=== PATIENT | female | born 1950 | race Caucasian/White ===

== ENCOUNTER → 2016-05-04 | Outpatient (CLI) | payer OTHER ==
[2016-05-04 13:38] LABS: MEAN CORPUSCULAR HEMOGLOBIN 33.7 pg (27.0-33.0); MEAN CORPUSCULAR VOLUME 99.2 fl (80.0-96.0); RED CELL DISTRIBUTION WIDTH 13.8 % (11.5-14.5); WHITE BLOOD COUNT 7.5 K/mm3 (4.0-10.0)
[2016-05-04 13:49] LABS: ALBUMIN/GLOBULIN RATIO 1.33 (1.00-1.93); ALKALINE PHOSPHATASE 160 U/L (45-117); ALT/SGPT 29 U/L (12-78); ANION GAP 6 MEQ/L (8-16); AST/SGOT 26 U/L (15-37); BILIRUBIN,TOTAL 0.3 MG/DL (0.2-1.0); BLOOD UREA NITROGEN 15 MG/DL (7-18); CALCIUM LEVEL 9.6 MG/DL (8.8-10.2); CARBON DIOXIDE LEVEL 30 MEQ/L (21-32); CHLORIDE LEVEL 109 MEQ/L (98-107); CHOLESTEROL LEVEL 285 MG/DL (<200); CREATININE FOR GFR 0.68 MG/DL (0.55-1.02); GLOMERULAR FILTRATION RATE > 60.0 (>45); GLUCOSE, FASTING 97 MG/DL (80-110); POTASSIUM SERUM 4.6 MEQ/L (3.5-5.1); SODIUM LEVEL 145 MEQ/L (136-145); TRIGLYCERIDES LEVEL 183 MG/DL (<150)
== END | disposition home or self-care (01) ==
LOC: M WUC 10:21
PROVIDERS: ATTEND Nurse Practitioner Adult Health
DX: E83.119 Hemochromatosis, unspecified (principal); I10 Essential (primary) hypertension; E78.00 Pure hypercholesterolemia, unspecified; E03.9 Hypothyroidism, unspecified

== ENCOUNTER → 2017-01-29 | Outpatient (CLI) | payer MEDICARE, OTHER ==
[2017-01-29 13:54] LABS: MEAN CORPUSCULAR HGB CONC 33.2 g/dl (32.0-36.5); MEAN CORPUSCULAR VOLUME 96.5 fl (80.0-96.0); RED CELL DISTRIBUTION WIDTH 13.5 % (11.5-14.5); WHITE BLOOD COUNT 7.1 10^3/uL (4.0-10.0)
[2017-01-29 14:06] LABS: ALBUMIN 3.6 GM/DL (3.2-5.2); ALBUMIN/GLOBULIN RATIO 1.13 (1.00-1.93); ALKALINE PHOSPHATASE 147 U/L (45-117); ALT/SGPT 23 U/L (12-78); ANION GAP 8 MEQ/L (8-16); AST/SGOT 15 U/L (15-37); BILIRUBIN,TOTAL 0.3 MG/DL (0.2-1.0); BLOOD UREA NITROGEN 17 MG/DL (7-18); CARBON DIOXIDE LEVEL 27 MEQ/L (21-32); CHLORIDE LEVEL 107 MEQ/L (98-107); CHOLESTEROL LEVEL 284 MG/DL (<200); CREATININE FOR GFR 0.65 MG/DL (0.55-1.02); GLOMERULAR FILTRATION RATE > 60.0 (>45); GLUCOSE, FASTING 99 MG/DL (80-110); POTASSIUM SERUM 4.3 MEQ/L (3.5-5.1); SODIUM LEVEL 142 MEQ/L (136-145); TOTAL PROTEIN 6.8 GM/DL (6.4-8.2); TRIGLYCERIDES LEVEL 365 MG/DL (<150)
== END ==
LOC: M WUC 09:23
PROVIDERS: ATTEND Nurse Practitioner Adult Health
DX: Z00.00 Encounter for general adult medical examination without abnormal findings (principal); E03.9 Hypothyroidism, unspecified

== ENCOUNTER → 2017-09-19 | Outpatient (REF) | payer MEDICARE, OTHER ==
[2017-09-19 12:47] LABS: HEMATOCRIT 39.7 % (36.0-47.0); HEMOGLOBIN 12.8 g/dl (12.0-15.5); MEAN CORPUSCULAR HEMOGLOBIN 29.9 pg (27.0-33.0); MEAN CORPUSCULAR HGB CONC 32.2 g/dl (32.0-36.5); MEAN CORPUSCULAR VOLUME 92.8 fl (80.0-96.0); PLATELET COUNT, AUTOMATED 342 10^3/uL (150-450); RED BLOOD COUNT 4.28 10^6/uL (4.00-5.40); WHITE BLOOD COUNT 7.8 10^3/uL (4.0-10.0)
[2017-09-19 17:49] LABS: ALBUMIN/GLOBULIN RATIO 0.86 (1.00-1.93); ALKALINE PHOSPHATASE 138 U/L (45-117); ALT/SGPT 15 U/L (12-78); ANION GAP 5 MEQ/L (8-16); AST/SGOT 12 U/L (7-37); BILIRUBIN,TOTAL 0.3 MG/DL (0.2-1.0); BLOOD UREA NITROGEN 10 MG/DL (7-18); CALCIUM LEVEL 8.5 MG/DL (8.8-10.2); CARBON DIOXIDE LEVEL 30 MEQ/L (21-32); CHLORIDE LEVEL 109 MEQ/L (98-107); CHOLESTEROL LEVEL 213 MG/DL (<200); CHOLESTEROL RISK RATIO 5.325 (<5); CREATININE FOR GFR 0.67 MG/DL (0.55-1.30); GLOMERULAR FILTRATION RATE > 60.0 (>45); GLUCOSE, FASTING 95 MG/DL (70-100); HDL CHOLESTEROL 40 MG/DL (>40); LDL CHOLESTEROL 136.6 MG/DL (<100); NON-HDL-C 173 MG/DL; POTASSIUM SERUM 4.3 MEQ/L (3.5-5.1); SODIUM LEVEL 144 MEQ/L (136-145); TOTAL PROTEIN 6.5 GM/DL (6.4-8.2); TRIGLYCERIDES LEVEL 182 MG/DL (<150)
== END ==
LOC: M LAB REF 11:42
DX: I10 Essential (primary) hypertension (principal); E83.119 Hemochromatosis, unspecified; E03.9 Hypothyroidism, unspecified
CPT/HCPCS: 84443

== ENCOUNTER → 2017-10-11 | Outpatient (CLI) | payer MEDICARE, OTHER ==
[~2017-10-11] MED LIST: GASTROGRAFIN SOLUTION 30ML (Q9963) As Ordered; ISOVUE-370 76% 100ML VIAL (Q9967) As Ordered
== END ==
LOC: M RAD 10:48
DX: R18.8 Other ascites (principal); M51.36 Other intervertebral disc degeneration, lumbar region; R14.0 Abdominal distension (gaseous); Z90.89 Acquired absence of other organs; Z90.710 Acquired absence of both cervix and uterus; Z90.49 Acquired absence of other specified parts of digestive tract; I10 Essential (primary) hypertension
CPT/HCPCS: Q9963

== ENCOUNTER → 2017-10-11 | Outpatient (REF) | payer MEDICARE, OTHER ==
[2017-10-12 23:39] LABS: GAMMA GLUTAMYLTRANSPEPTIDASE 82 U/L (5-55)
[2017-10-12 23:39] LABS: FERRITIN 77 NG/ML (8-252); IRON (FE) 45 UG/DL (50-170); PERCENT SATURATION 16.3 % (13.2-45.0); TOTAL IRON BINDING CAPACITY 276 UG/DL (250-450)
== END ==
LOC: M LAB REF 11:03
DX: R94.5 Abnormal results of liver function studies (principal)

== ENCOUNTER → 2017-10-15 | Outpatient (REF) | payer MEDICARE, OTHER ==
[2017-10-15 16:22] LABS: PROTHROMBIN TIME 13.3 SECONDS (12.4-14.5)
[2017-10-15 16:23] LABS: PARTIAL THROMBOPLASTIN TIME 32.5 SECONDS (26.8-37.9)
== END ==
LOC: M LABDRAW1 12:51
DX: R93.3 Abnormal findings on diagnostic imaging of other parts of digestive tract (principal)
CPT/HCPCS: 85610

== ENCOUNTER → 2017-10-16 | Outpatient (CLI) | payer MEDICARE, OTHER ==
[2017-10-16 12:31] LABS: ALBUMIN 3.4 GM/DL (3.2-5.2); ALBUMIN/GLOBULIN RATIO 0.89 (1.00-1.93); ALKALINE PHOSPHATASE 172 U/L (45-117); ALT/SGPT 16 U/L (12-78); AST/SGOT 15 U/L (7-37); BILIRUBIN,DIRECT < 0.1 MG/DL (0.0-0.2); BILIRUBIN,TOTAL 0.3 MG/DL (0.2-1.0); CHOLESTEROL LEVEL 259 MG/DL (<200); CHOLESTEROL RISK RATIO 6.166 (<5); HDL CHOLESTEROL 42 MG/DL (>40); LDL CHOLESTEROL 165.6 MG/DL (<100); NON-HDL-C 217 MG/DL; TOTAL PROTEIN 7.2 GM/DL (6.4-8.2); TRIGLYCERIDES LEVEL 257 MG/DL (<150)
== END ==
LOC: M WUC 09:10
DX: R10.13 Epigastric pain (principal)

== ENCOUNTER → 2017-10-16 | Outpatient (CLI) | payer MEDICARE, OTHER | LOC: M RADPRO 12:10 | DX: R10.13 Epigastric pain (principal); R18.8 Other ascites; Z88.8 Allergy status to other drugs, medicaments and biological substances; Z79.899 Other long term (current) drug therapy | CPT/HCPCS: 49083 ==

== ENCOUNTER 2017-10-29 08:59 | Day surgery (SDC) | payer MEDICARE, OTHER ==
[2017-10-29] MEDS ORDERED: PROPOFOL 200 MG/20 ML VIAL As Ordered ×5 (09:09→10:39)
[2017-10-29] MEDS ORDERED: LIDOCAINE 2% INJ 100 MG/5 ML SDV (FOR ANES.) As Ordered (09:09)
[2017-10-29] MEDS ORDERED: fentaNYL 100 MCG/2 ML INJECTION (J3010) As Ordered (09:10)
[2017-10-29] MEDS: NS 1,000 ML IV (09:15)
== END 2017-10-29 11:30 | disposition home or self-care (01) ==
LOC: M OPP 08:59
DX: D12.2 Benign neoplasm of ascending colon (principal); K63.5 Polyp of colon; D49.0 Neoplasm of unspecified behavior of digestive system; D12.5 Benign neoplasm of sigmoid colon; K64.8 Other hemorrhoids; K29.70 Gastritis, unspecified, without bleeding; R10.13 Epigastric pain; I10 Essential (primary) hypertension; F41.9 Anxiety disorder, unspecified; K21.9 Gastro-esophageal reflux disease without esophagitis; R06.83 Snoring; F17.210 Nicotine dependence, cigarettes, uncomplicated; Z79.899 Other long term (current) drug therapy; Z90.49 Acquired absence of other specified parts of digestive tract
CPT/HCPCS: 45385

== ENCOUNTER 2017-11-08 11:06 | Day surgery (SDC) | payer MEDICARE, OTHER ==
[2017-11-08] MEDS: NS 1,000 ML IV (11:15)
[2017-11-08] MEDS ORDERED: PROPOFOL 200 MG/20 ML VIAL As Ordered ×4 (13:57→14:36)
[2017-11-08] MEDS ORDERED: GLYCOPYRROLATE INJ 0.2 MG/ML 2 ML VIAL As Ordered (14:01)
[2017-11-08] MEDS ORDERED: ONDANSETRON 4MG/2ML VIAL (J2405) As Ordered (14:06)
[2017-11-08] MEDS ORDERED: LIDOCAINE 2% INJ 100 MG/5 ML SDV (FOR ANES.) As Ordered (14:36)
== END 2017-11-08 15:04 | disposition home or self-care (01) ==
LOC: M OPP 11:06
DX: R18.8 Other ascites (principal); C18.6 Malignant neoplasm of descending colon; I10 Essential (primary) hypertension; K21.9 Gastro-esophageal reflux disease without esophagitis; F41.9 Anxiety disorder, unspecified; F32.9 Major depressive disorder, single episode, unspecified; R06.83 Snoring; F17.210 Nicotine dependence, cigarettes, uncomplicated; Z79.891 Long term (current) use of opiate analgesic; Z79.899 Other long term (current) drug therapy; Z90.710 Acquired absence of both cervix and uterus; Z90.49 Acquired absence of other specified parts of digestive tract
CPT/HCPCS: 49083

== ENCOUNTER → 2017-11-13 | Outpatient (CLI) | payer MEDICARE, OTHER | LOC: M PLARAD 08:21 | DX: C18.9 Malignant neoplasm of colon, unspecified (principal) | CPT/HCPCS: 78815 ==

== ENCOUNTER → 2017-12-10 | Outpatient (REF) | payer MEDICARE, OTHER ==
[2017-12-10 18:11] LABS: INR 0.99; PROTHROMBIN TIME 13.2 SECONDS (12.1-14.4)
[2017-12-10 18:12] LABS: PARTIAL THROMBOPLASTIN TIME 33.8 SECONDS (25.4-37.6)
[2017-12-11 09:30] LABS: CARCINOEMBRYONIC ANTIGEN 16.9 NG/ML (<2.5)
== END ==
LOC: M LAB REF 16:35
DX: C18.9 Malignant neoplasm of colon, unspecified (principal); Z79.01 Long term (current) use of anticoagulants
CPT/HCPCS: 82378

== ENCOUNTER → 2017-12-11 | Outpatient (REF) | payer MEDICARE, OTHER | LOC: M LAB REF 14:11 | DX: C18.9 Malignant neoplasm of colon, unspecified (principal) | CPT/HCPCS: 88300 ==

== ENCOUNTER → 2017-12-13 | Outpatient (CLI) | payer MEDICARE, OTHER ==
[~2017-12-13] MED LIST changes: -GASTROGRAFIN SOLUTION 30ML (Q9963) As Ordered; -ISOVUE-370 76% 100ML VIAL (Q9967) As Ordered; +LIDOCAINE 2% MDV 20 ML VIAL As Ordered; +MIDAZOLAM INJ 2 MG/2 ML VIAL (J2250) As Ordered; +ceFAZolin 1GM INJ (J0690 PER 500MG) As Ordered; +fentaNYL 100 MCG/2 ML INJECTION (J3010) As Ordered
== END | disposition home or self-care (01) ==
LOC: M IRPRO 12:43
DX: C18.9 Malignant neoplasm of colon, unspecified (principal)
CPT/HCPCS: 36561

== ENCOUNTER → 2018-03-04 | Outpatient (CLI) | payer MEDICARE, OTHER ==
[~2018-03-04] MED LIST changes: +EMLA CREAM 5GM (LIDOCAINE/PRILOCAINE) As Ordered; +GASTROGRAFIN SOLUTION 30ML (Q9963) As Ordered; +ISOVUE-370 76% 100ML VIAL (Q9967) As Ordered; -LIDOCAINE 2% MDV 20 ML VIAL As Ordered; -MIDAZOLAM INJ 2 MG/2 ML VIAL (J2250) As Ordered; -ceFAZolin 1GM INJ (J0690 PER 500MG) As Ordered; -fentaNYL 100 MCG/2 ML INJECTION (J3010) As Ordered
== END ==
LOC: M RAD 15:38
DX: C18.9 Malignant neoplasm of colon, unspecified (principal)
CPT/HCPCS: Q9963

== ENCOUNTER → 2018-05-02 | Outpatient (CLI) | payer MEDICARE, OTHER ==
[~2018-05-02] MED LIST changes: +AMLO5TAB6 PO; +BUSP15TA47 PO; -EMLA CREAM 5GM (LIDOCAINE/PRILOCAINE) As Ordered; +FLUO40CA PO; -GASTROGRAFIN SOLUTION 30ML (Q9963) As Ordered; +GASTROGRAFIN SOLUTION 30ML (Q9963) As Ordered ONE; +IRBE300T10 PO; -ISOVUE-370 76% 100ML VIAL (Q9967) As Ordered; +ISOVUE-370 76% 100ML VIAL (Q9967) As Ordered ONE; +LEVO125T4 PO; +MEGE40TA PO; +OMEG350C PO; +OMEP40CA2 PO; +ONDA8TAB7 PO; +OXYC1TAB23 PO; +POTA1TAB14 PO; +ZELB1TAB PO
--- NOTE | 2018-05-02 12:29 | REP ---
CT CHEST WITH IV CONTRAST: HISTORY: Restage colon carcinoma. Comparison chest CT images are from PET/CT study dated November 13, 2017. CT CONTRAST DOSE: 100 mL of intravenous Isovue 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 There is no evidence of pleural or pericardial effusion. No hilar or mediastinal adenopathy is appreciated. There are scattered normal-sized lymph nodes unchanged. There is a slightly prominent left internal mammary lymph node 12 mm in diameter unchanged from the November 13, 2017 study. No axillary or other extrathoracic adenopathy is seen. A Whrdwv-H-Krag catheter is noted in place via the right internal jugular vein. There are is an 8 mm nodule in the superior segment of the right lower lobe visible on axial CT image number 36 of 90 in series 204 of today's study. This is believed to be visible in retrospect on CT images from November 13, 2017. A second pulmonary nodule is seen medially in the left upper lobe just above the left main pulmonary artery and medial to the hilar vessels. This measures 7 mm in greatest diameter and is barely visualized on axial is CT image number 29 of 90 in series 204. It is better displayed on coronal and sagittal multiplanar re-formation images. I do not see this nodule in retrospect on November 13, [address] scans are not of the same quality. No other new pulmonary nodule is seen. There is a granulomatous calcification in the left upper lobe on page 27 of 90. No bony destructive lesion is appreciated. IMPRESSION: 1. Stable internal mammary lymph node. 2. 8 mm right lower lobe pulmonary nodule and 7 mm left upper lobe pulmonary nodule somewhat suspicious for pulmonary metastases. The left upper lobe nodule appears to be a new finding. Electronically Signed by Marvin Andrade MD 05/02/2018 01:04 P
--- NOTE | 2018-05-02 12:39 | REP ---
CT abdomen and pelvis with IV and oral contrast: History: Restage colon carcinoma. Comparison study: March 04, 2018. October 11, 2017 prior study is also reviewed. CT contrast dose: 100 mL of intravenous Isovue. CT findings: No focal hepatic or splenic lesion has developed. No adrenal lesion is observed. Pancreas is unremarkable. The gallbladder and appendix are surgically absent along with the uterus. No hydronephrosis is seen. The kidneys enhance symmetrically and appear morphologically intact. There is a diffuse abdominal peritoneal carcinomatosis pattern throughout the abdomen again noted with infiltration of the entire omental fat and multiple areas of infiltration adjacent to bowel loops. There is still some mild ascites, pelvic reflections and perihepatic region but there is considerably less ascites and more peritoneal caking when compared with the October 11, 2017 prior study. 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 Proximal to this lesion, the colon is mildly prominent and filled with formed stool. Its caliber has increased since February 22, 2018. Small bowel loops are opacified with oral contrast which is seen extending into the level of the right colon at the time of scanning. Small bowel caliber is normal. No pelvic adenopathy is observed. No bony destructive lesion is seen. Impression: There is extensive omental and peritoneal infiltration consistent with peritoneal carcinomatosis. There is more peritoneal caking and less ascites when compared with the October 11, 2017 prior study. The annular malignant lesion in the sigmoid colon is again seen. Proximal to this the colon is somewhat dilated and filled with formed stool suggesting an obstructive component. Electronically Signed by Marvin Andrade MD 05/02/2018 04:23 P
--- NOTE | 2018-05-02 14:32 | REP ---
WHOLE BODY BONE SCAN: Following the intravenous administration of 21.9 mCi technetium 99m MDP, patient's whole body is imaged in the anterior and posterior projections. Additional oblique images are performed as well as lateral views. I see no compelling scintigraphic evidence of osseous metastases. There appears to be mild scattered arthritic uptake in the mid to lower thoracic spine region as well as in the lower lumbar spine. There appears to be mild arthritic uptake in the right foot. Renal and bladder activity are seen. IMPRESSION: No compelling scintigraphic evidence of osseous metastases. Electronically Signed by Enrique Lindsay MD 05/02/2018 08:25 P
== END ==
LOC: M RAD 10:07
PROVIDERS: ATTEND Nurse Practitioner Family
DX: Z85.038 Personal history of other malignant neoplasm of large intestine (principal); R93.3 Abnormal findings on diagnostic imaging of other parts of digestive tract; R91.8 Other nonspecific abnormal finding of lung field
CPT/HCPCS: 71260; 74177; 78306; A9503; Q9963; Q9967

== ENCOUNTER 2018-05-29 00:28 | Inpatient (IN) | payer MEDICARE, OTHER ==
[~2018-05-29] VITALS: Ht 167.6 cm; Wt 85.6 kg
[~2018-05-29 00:28] MED LIST changes: -GASTROGRAFIN SOLUTION 30ML (Q9963) As Ordered ONE; -ISOVUE-370 76% 100ML VIAL (Q9967) As Ordered ONE
[2018-05-29] MEDS ORDERED: NS 1,000 ML IV ONE (01:15)
[2018-05-29 01:19] LABS: HEMATOCRIT 38.3 % (36.0-47.0); HEMOGLOBIN 12.6 g/dl (12.0-15.5); MEAN CORPUSCULAR HEMOGLOBIN 29.7 pg (27.0-33.0); MEAN CORPUSCULAR HGB CONC 32.9 g/dl (32.0-36.5); MEAN CORPUSCULAR VOLUME 90.3 fl (80.0-96.0); RED BLOOD COUNT 4.24 10^6/uL (4.00-5.40)
[2018-05-29 01:35] LABS: WHITE BLOOD COUNT 0.6 10^3/uL (4.0-10.0)
[2018-05-29] MEDS ORDERED: PROC10TA4 PO (01:37)
[2018-05-29] MEDS ORDERED: ONDA8TAB7 PO (01:37)
[2018-05-29] MEDS ORDERED: MEGE40TA PO (01:37)
[2018-05-29 01:57] LABS: ATYPICAL LYMPH 1 % (0-5); LYMPHOCYTES 71 % (16-52); MONOCYTES 12 % (0-8); NEUTROPHILS 16 % (35-75)
[2018-05-29 01:58] LABS: ANISOCYTOSIS 1+; PLATELET CLUMPS SMALL AMT; PLATELET ESTIMATE NORMAL (NORMAL)
[2018-05-29 02:34] LABS: CALCIUM LEVEL 8.3 MG/DL (8.8-10.2); CREATININE FOR GFR 6.28 MG/DL (0.55-1.30); GLOMERULAR FILTRATION RATE 7.1 (>45)
[2018-05-29 02:42] LABS: POTASSIUM SERUM 5.5 MEQ/L (3.5-5.1)
[2018-05-29] MEDS ORDERED: NS 1,000 ML IV SCH (03:15)
[2018-05-29] MEDS ORDERED: ACETAMINOPHEN TAB 650MG DOSE (2X325MG) PO PRN (03:15)
[2018-05-29] MEDS ORDERED: ONDANSETRON 4MG/2ML VIAL (J2405) IV PRN (03:15)
--- NOTE | 2018-05-29 04:19 | HPEPDOC ---
[facility] Medical History & Physical Date of Admission May 29, 2018 Other Provider Dictating/admitting: Esther Munoz M.D. Attending Physician: ANDRÉS MCKEE MD History and Physical CHIEF COMPLAINT: Diarrhea HISTORY OF PRESENT ILLNESS: Patient is a 67-year-old woman with history of hypertension, tobacco abuse, hemochromatosis, alopecia, hypercholesterolemia, depression/anxiety, hypothyroidism, stage IV adenocarcinoma refusing surgery. Patient declined surgical intervention for her stage IV cancer. Instead, she takes chemotherapy. She was recently started on a new IV chemotherapy; irinotecan/cetuximab/vemurafenib which she received on May 21, following which she started having nausea and vomiting along with diarrhea. Initially, the area was on and off and it was more of vomiting and nausea, but lately since she is not been able to tolerate by mouth, vomiting. Has reduced in frequency, but the diarrhea worsened over the past 2 days. She denies any blood in stool. No mention of hematemesis. She occasionally gets lightheaded with this episode of nausea and vomiting. She denies chest pain, palpitations, fever, chills, shortness of breath. No cough. She also denies any change in her urinary habits. She was evaluated in the emergency room with labs white count of 0.6, BUN 87, and creatinine 6 and lactate 4. She was giving a liter bolus of normal saline before. Hospitalist was called in to continue management and to admit patient. PAST MEDICAL HISTORY: Per HPI PAST SURGICAL HISTORY: 1. Gallbladder removal. 2. Total hysterectomy. 3. Appendectomy. 4. Left breast biopsy negative in 2001. 5. History of fractured right arm. SOCIAL HISTORY: Lives with . Active smoker (40 pack years). Denies illicit drug use. FAMILY HISTORY: Family history unknown, patient is adopted ALLERGIES: Please see below. REVIEW OF SYSTEMS: She denies any blood in stool. No mention of hematemesis. She occasionally gets lightheaded with this episode of nausea and vomiting. She denies chest pain, palpitations, fever, chills, shortness of breath. No cough. She also denies any change in her urinary habits. Other system reviewed negative. 12 point review of system was done. HOME MEDICATIONS: Please see below. PHYSICAL EXAMINATION: VITAL SIGNS: Temperature 96.5, pulse 81, respiratory rate 16, blood pressure 92/61, pulse oximetry 100 % on room air. GENERAL APPEARANCE: Elderly woman, with dry bucal mucosa and sunken periorbits, lying calmly in bed, not in any apparent distress. She is not pale, anicteric and afebrile HEENT: Atraumatic. Neck: Supple. LUNGS: Clear to auscultation bilaterally. Chemo port on right side of chest noted. CARDIOVASCULAR: S1 and 2 heard, no murmurs, rubs or gallops. ABDOMEN: Obese, soft, not tender, not distended. Bowel sounds normoactive. MUSCULOSKELETAL: Apparently within normal limits. EXTREMITIES: No pedal edema, 2+ bilateral pedal pulses noted. NEUROLOGICAL: Awake, alert, oriented 3. PSYCHIATRIC: Normal affect LABORATORY DATA: See below. IMAGING: None MICROBIOLOGY: Please see below. ASSESSMENT: 67-year-old female with above-mentioned comorbid history started new IV chemotherapy with subsequent diarrhea as side effects. Physical exam is unremarkable. However, labs reveal severe BERLIN, leukopenia and hyperkalemia. She is not in urgent need of dialysis at this time. DIAGNOSES: 1. Diarrhea, likely resulting from the use of IV chemotherapy. 2. BERLIN, with multi-etiology from diarrhea, chemotherapy medication, and relative hypotension. 3. Hyperkalemia (mild). No EKG changes. 4. Leukopenia . PLAN: 1. I will admit patient to PCU under care of Dr. Mckee. 2AKI/dehydration. Anticipate improvement with volume expansion. We will hold any nephrotoxic agents at this time, if BERLIN is not improved, consider nephrology c onsult. Currently, patient is not in urgent need of dialysis. Follow daily BMP. 3. Hyperkalemia. No EKG changes. I will give calcium gluconate at this time. Serum potassium level is 5.5, I anticipate improvement in potassium level back down to baseline with IV normal saline, which will make available sodium to the distal table in exchange for potassium, enhancing potassium excretion. Follow BMP in the morning. 4. Diarrhea. We'll continue with volume expansion. IV Zofran when necessary nausea and vomiting. 5. Leukopenia with no systemic signs of infection may have resulted from chemotherapy. 6. Patient's blood pressure a little soft. I will hold BP medications for now and she may resume other outpatient medications as tolerated. 7. Patient will be nothing by mouth but will try clear liquid diet as she can tolerate. 8. DVT prophylaxis subcutaneous heparin. 9. GI prophylaxis. Pantoprazole. 10. Further management to be per patient's clinical course. Vital Signs Vital Signs Date Time Temp Pulse Resp B/P (MAP) Pulse Ox O2 Delivery O2 Flow Rate FiO2 05/29/18 01:46 81 16 92/61 (71) 100 Room Air 05/29/18 00:48 96.5 Laboratory Data Labs 24H Laboratory Tests 2 05/29/18 00:55: White Blood Count 0.6*L, Red Blood Count 4.24, Hemoglobin 12.6, Hematocrit 38.3, Mean Corpuscular Volume 90.3, Mean Corpuscular Hemoglobin 29.7, Mean Corpuscular Hemoglobin Concent 32.9, Red Cell Distribution Width 16.2H, Platelet Count , Neutrophils # (Auto) , Nucleated Red Blood Cells % (auto) 0.0, Neutrophils 16L, Lymphocytes (Manual) 71H, Monocytes (Manual) 12H, Atypical Lymphocytes 1, Platelet Estimate NORMAL, Clumped Platelets SMALL AMT, Anisocytosis 1+, Lactic Acid Level 4.7*H 05/29/18 02:01: Anion Gap 17H, Glomerular Filtration Rate 7.1L, Blood Urea Nitrogen 87H, Crea tinine 6.28H, Sodium Level 133L, Potassium Level 5.5H, Chloride Level 106, Carbon Dioxide Level 10L, Calcium Level 8.3L CBC/BMP Laboratory Tests 05/29/18 00:55 Red Blood Count 4.24, Mean Corpuscular Volume 90.3, Mean Corpuscular Hemoglobin 29.7, Mean Corpuscular Hemoglobin Concent 32.9, Red Cell Distribution Width 16.2 H, Neutrophils # (Auto) 05/29/18 02:01 Calcium Level 8.3 L Microbiology Microbiology 05/29/18 Blood Culture, Received Pending Home Medications Scheduled ([place]-3 350 mg) 1 Cap Cap, 1 CAP PO DAILY Amlodipine Besylate (Amlodipine Besylate) 5 Mg Tab, 5 MG PO DAILY Buspirone HCl (Buspirone HCl) 15 Mg Tab, 15 MG PO DAILY Fluoxetine Hcl (Fluoxetine HCl) 40 Mg Cap, 40 MG PO DAILY Irbesartan (Irbesartan) 300 Mg Tab, 300 MG PO DAILY Levothyroxine Sodium (Synthroid) 125 Mcg Tab, 125 MCG PO DAILY Megestrol Acetate (Megestrol Acetate) 40 Mg Tab, 160 MG PO DAILY Scheduled PRN Ondansetron HCl (Ondansetron HCl) 8 Mg Tab, 8 MG PO Q6H PRN for NAUSEA Prochlorperazine Maleate (Prochlorperazine Maleate) 10 Mg Tab, 10 MG PO Q8H PRN for NAUSEA Allergies Coded Allergies: No Known Drug Allergy (Verified Allergy, Unknown, 10/23/17) ESTHER MUNOZ MD May 29, 2018 03:34
[2018-05-29] MEDS ORDERED: CALCIUM GLUCONATE 1,000 MG in D5W MINI-BAG PLUS 100 ML IV ONE (04:30)
[2018-05-29 06:00] VITALS: BP 119/66
[2018-05-29] MEDS: LEVOTHYROXINE 125MCG TABLET (0.125MG) PO SCH (06:00)
[2018-05-29 07:21] LABS: HEMATOCRIT 35.9 % (36.0-47.0); MEAN CORPUSCULAR HEMOGLOBIN 29.6 pg (27.0-33.0); MEAN CORPUSCULAR HGB CONC 33.4 g/dl (32.0-36.5); MEAN CORPUSCULAR VOLUME 88.6 fl (80.0-96.0); RED BLOOD COUNT 4.05 10^6/uL (4.00-5.40)
[2018-05-29 07:39] LABS: CALCIUM LEVEL 9.2 MG/DL (8.8-10.2); CREATININE FOR GFR 6.09 MG/DL (0.55-1.30); GLOMERULAR FILTRATION RATE 7.3 (>45); POTASSIUM SERUM 4.9 MEQ/L (3.5-5.1)
[2018-05-29 08:00] VITALS: BP 136/75
[2018-05-29 08:23] LABS: PLATELET COUNT, AUTOMATED 73 10^3/uL (150-450); WHITE BLOOD COUNT 0.5 10^3/uL (4.0-10.0)
--- NOTE | 2018-05-29 08:49 | REP ---
Portable chest x-ray: Single view. History: Neutropenia. Findings: There is a right-sided Xnftpk-V-Tzuc catheter. The lungs are well inflated and clear. No infiltrate is seen. Pleural angles are sharp. Heart size is normal. No significant bony abnormalities seen. Pulmonary vasculature is not increased. Impression: No active disease. Electronically Signed by Marvin Andrade MD 05/29/2018 08:41 A
[2018-05-29 09:19] LABS: MAGNESIUM LEVEL 2.2 MG/DL (1.8-2.4); URIC ACID 11.3 MG/DL (2.6-6.0)
--- NOTE | 2018-05-29 09:58 | REP ---
Urinary tract sonogram: History: Acute renal failure. Comparison: CT abdomen and pelvis May 02, 2018. Findings: Scanning at the level of the urinary bladder shows no abnormality. Renal cortical echogenicity pattern is normal bilaterally and contours are smooth. There is no evidence of hydronephrosis, cyst, mass, or calculus in either kidney. The right kidney measures 10.7 x 5.6 x 4.8 cm. Left renal dimensions are 11.3 x 4.3 x 4.8 cm. Impression: Normal urinary tract sonography. Electronically Signed by Marvin Andrade MD 05/29/2018 09:49 A
[2018-05-29] MEDS: MEGESTROL 40 MG TAB PO SCH (10:01)
[2018-05-29] MEDS: HEPARIN SOD (PORCINE) 5000 UNITS/ML VIAL SQ SCH ×2 (10:01→21:24)
[2018-05-29] MEDS: FLUoxetine 20 MG CAP PO SCH (10:01)
[2018-05-29] MEDS: PANTOPRAZOLE 40MG INJ (PROTONIX) (C9113) IV SCH (10:01)
[2018-05-29 12:00] VITALS: BP 162/80
[2018-05-29 13:31] LABS: CHOLESTEROL LEVEL 201 MG/DL (<200); CHOLESTEROL RISK RATIO 4.568 (<5); HDL CHOLESTEROL 44 MG/DL (>40); LDL CHOLESTEROL 124 MG/DL (<100); NON-HDL-C 157 MG/DL; TRIGLYCERIDES LEVEL 164 MG/DL (<150)
[2018-05-29 13:37] LABS: HEPATITIS B SURFACE ANTIBODY POSITIVE (POSITIVE)
[2018-05-29 13:39] LABS: HEMOGLOBIN A1c 5.3 %
[2018-05-29 13:49] LABS: HEPATITIS B SURFACE ANTIGEN NEGATIVE (NEGATIVE)
[2018-05-29 13:50] LABS: APPEARANCE, URINE CLOUDY (CLEAR); BACTERIA, URINE AUTO NEGATIVE (NEGATIVE); BILIRUBIN, URINE AUTO NEGATIVE (NEGATIVE); BLOOD, URINE BLOOD 1+ (NEGATIVE); COLOR, URINE AMBER (YELLOW); GLUCOSE, URINE (UA) AUTO NEGATIVE (NEGATIVE); KETONE, URINE AUTO NEGATIVE (NEGATIVE); LEUKOCYTE ESTERASE, URINE AUTO NEGATIVE (NEGATIVE); MUCUS, URINE SMALL (NEGATIVE); NITRITE, URINE AUTO NEGATIVE (NEGATIVE); PROTEIN, URINE AUTO 1+ mg/dL (NEGATIVE); RBC, URINE AUTO 3 /HPF (0-3); SPECIFIC GRAVITY URINE AUTO 1.014 (1.002-1.035); SQUAMOUS EPITHELIAL CELL UR AU 0 /HPF (0-6); UROBILINOGEN, URINE AUTO 0.2 mg/dL (0.0-2.0); WBC, URINE AUTO 2 /HPF (0-3)
[2018-05-29] MEDS: SODIUM BICARBONATE 75 MEQ in NS 0.45% 1,000 ML IV SCH (13:59)
[2018-05-29 14:16] LABS: HEPATITIS B CORE ANTIBODY IGM NEGATIVE (NEGATIVE); HEPATITIS C VIRUS ABY INDEX 0.1 INDEX (<0.8)
[2018-05-29 14:25] LABS: TOTAL PROTEIN,RANDOM URINE 127.7 MG/DL (0.0-12.0)
[2018-05-29] MEDS: SIMETHICONE 80 MG CHEW TAB PO PRN (14:51)
[2018-05-29] MEDS: FILGRASTIM 300 MCG/0.5 ML SYRINGE (J1442 PER 1MCG) SC SCH (14:52)
[2018-05-29 16:00] VITALS: BP 119/71
[2018-05-29 20:00] VITALS: BP 105/68
--- NOTE | 2018-05-29 21:38 | ECGEPIP ---
Stationary ECG Study [facility] Test Date: 2018-05-29 Pat Name: DERIC CARROLL Department: Room: [place] [address] Gender: F Dining Services Manager: KEVIN : 1950 Requested By: ESTHER Blake Order Number: [id number] Reading MD: Joseph Carver Measurements Intervals [place] Rate: 85 P: 68 AL: 138 QRS: 51 QRSD: 89 T: 39 QT: 256 QTc: 306 Interpretive Statements SINUS RHYTHM NONSPECIFIC T-WAVE ABNORMALITY NO PRIOR Electronically Signed On 05-29-2018 21:38:09 EST by Joseph Carver
[2018-05-30] VITALS: BP 110/59
[2018-05-30 04:00] VITALS: BP 118/66
[2018-05-30] MEDS: SODIUM BICARBONATE 75 MEQ in NS 0.45% 1,000 ML IV SCH ×2 (04:44→22:57)
[2018-05-30] MEDS: LEVOTHYROXINE 125MCG TABLET (0.125MG) PO SCH (04:45)
--- NOTE | 2018-05-30 07:47 | CR ---
DATE OF CONSULTATION: 05/29/2018 REFERRING PHYSICIAN: Dr. Tim Mejias CONSULTING PHYSICIAN: Dr. Jeffers REASON FOR CONSULTATION: Management of acute renal failure. CHIEF COMPLAINT: Patient presented to the hospital yesterday with nausea, vomiting, diarrhea and weakness. HISTORY OF PRESENT ILLNESS: Cassandra Christianson is a 67-year-old female with past medical history of chronic kidney disease stage II with a baseline creatinine of around 0.9, history of hypertension, multiple other comorbidities as mentioned below. She has a history of stage IV adenocarcinoma of the colon with peritoneal carcinomatosis. She elected not to have any surgery done. She has been having multiple chemotherapy regimens which are not working. She recently started a new chemotherapy regimen including irinotecan, cetuximab and vemurafenib. She got her first dose on May 21, 2018 and after getting the dose, the patient started having nausea, vomiting and diarrhea. She was unable to keep anything down. She was feeling very weak, tired and fatigued, and as reported by her , the patient started having very dark colored urine and sometimes the urine was even orange in color. The frequency and amount of the urine decreased. She presented to the emergency room and in the ER she was found to have acute renal failure with a creatinine of 6. She had neutropenia with a total WBC count of 0.6. She had a lactate of 4. The patient was given IV normal saline and after the initiation of fluids, the patient was admitted under the hospitalist service, nephrology service was called for further help in the management of this patient with acute renal failure. I saw and evaluated the patient today afternoon at the bedside. The patient reports that she is feeling slightly better today as compared with yesterday; however, she still reports that her urine output is not improving. The patient is getting normal saline at 125 mL an hour at this time. PAST MEDICAL HISTORY: Chronic kidney disease stage II, baseline creatinine of 0.9. History of stage IV adenocarcinoma of the colon. Hemochromatosis. Hypertension. Hyperlipidemia. Depression and anxiety. Hypothyroidism. PAST SURGICAL HISTORY: Status post cholecystectomy. Status post total hysterectomy. Status post appendectomy. Status post left breast biopsy. History of right arm surgery in the past. ALLERGIES: No known drug allergies. FAMILY HISTORY: No significant family history of end stage renal disease requiring hemodialysis. SOCIAL HISTORY: Patient is an active smoking, but she reports that her smoking has significantly decreased now. She denies any illicit drug abuse. 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 REVIEW OF SYSTEMS: CONSTITUTIONAL: Patient reported feeling very weak and tired when she came in. EYES: Patient denies blurry vision or double vision. ENT: She denies any dysphagia or odynophagia. CARDIOVASCULAR: She denies any chest pain or palpitations. RESPIRATORY: Patient reported that she was feeling short of breath at home on mild exertion. GASTROINTESTINAL (GI): She reports nausea, vomiting, diarrhea and difficulty to keep anything down. GENITOURINARY (): She reports dark urine, decreased frequency and amount of urine. MUSCULOSKELETAL: She denies any muscle aches and pains, but she does report weakness. HIDE PASTER: She denies any strokes or seizures. ENDOCRINE: She reports a history of hypothyroidism. SKIN: She denies any rashes or ulcers. PSYCH: She reports a history of depression and anxiety. HEMATOLOGICAL/ONCOLOGIC: She denies any easy bleeding or bruising, but she does report a history of stage IV CA of colon and peritoneal carcinomatosis. All other review of systems is negative. PHYSICAL EXAMINATION: GENERAL: Patient is awake, alert and oriented times three, laying in bed. CURRENT VITAL SIGNS: Temperature is 96.6 degrees Fahrenheit, blood pressure is 119/71, pulse is 88, respiratory rate of 20, saturating 100% on room air. HEAD/NECK EXAM: Patient has alopecia secondary to chemotherapy. Neck is supple. Mucous membranes are moist. There is no jugular venous distention (JVD). CARDIOVASCULAR: S1 and S2, regular rate. No edema of the bilateral lower extremities. RESPIRATORY: Chest is clear to auscultation bilaterally, bilateral equal air entry. No rales or rhonchi. ABDOMEN: Soft. Positive bowel sounds, nontender. Old surgical scars are noted. MUSCULOSKELETAL: No clubbing or cyanosis. Pulses are 2+. HIDE PASTER: No focal deficit. Power is 5/5 in all extremities. PSYCH: Patient has a depressed mood. LAB REVIEW: CBC showed a WBC of 0.5, hemoglobin is 12, platelets are 73. Urinalysis showed it was cloudy with 1+ protein and 1+ blood. Random total protein is 127, random creatinine is 159, random sodium is 20. BMP done today morning showed sodium 131, potassium 4.9, chloride 104, bicarb is 11, BUN 82, creatinine is 6.09, glucose is 96, uric acid is 11.3, phosphorous is 6.4. Microbiology: Urine culture is pending. GI panel is pending. IMAGING: Chest x-ray done on admission showed no active disease. Renal ultrasound done on admission showed normal urinary tract ultrasonography. CURRENT INPATIENT MEDICATIONS: The patient was given normal saline bolus today morning. She was getting normal at 125 mL an hour. I have changed the IV fluid to 1/2 normal saline plus 75 mEq of bicarb at 75 mL an hour. She is getting Neupogen 300 mcg subcu daily. She is on fluoxetine 40 mg daily, levothyroxine 125 mcg daily, Megace 160 mg by mouth daily, Zofran as needed, Protonix 40 mg IV every 24 hours, simethicone 80 mg every 6 hours as needed. ASSESSMENT: 67-year-old female with stage IV CA colon with mets with acute renal failure, neutropenia, status post new use of chemotherapy one week ago. PLAN: 1. Acute renal failure. It is most likely secondary to use of new nephrotoxic chemotherapeutic agent, which has caused acute tubular nephrosis or interstitial nephritis. The patient is dehydrated at this time. I have started the patient on IV fluid hydration. 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 I will continue to monitor intake and output. At this point continue the IV fluid hydration. 2. High anion gap metabolic acidosis. Sec to lactic acidosis and acute renal failure. Patent had lactic acidosis on arrival. Her anion gap is improving, lactic acidosis is improving. Since the patient has renal failure as well, I have started her on 1/2 normal saline plus 75 mEq of bicarb at 75 mL an hour. 3. Hyperkalemia. The patient had a potassium of 5.5 on arrival, which is improving after the IV fluid hydration. No further need of administration of Kayexalate at this point. 4. Hyperuricemia and hyperphosphatemia. It can be related to renal failure or tumor lysis syndrome might also cause this. At this point the treatment is symptomatic. No need of Rasburicase administration at this point. If renal function does not improve, the patient might need dialysis. 5. Neutropenia. It is secondary to chemotherapy. The patient is currently getting Neupogen 300 mcg subcu daily. No evidence of fever or infection. She is not getting any antibiotics at this point. 6. Hypothyroidism. Continue home dose of levothyroxine 125 mcg daily. Thank you for involving me in he care of this patient. I shall be happy to follow the patient along with you tomorrow morning. MELINDA
[2018-05-30 07:57] LABS: CALCIUM LEVEL 8.5 MG/DL (8.8-10.2); CREATININE FOR GFR 4.64 MG/DL (0.55-1.30); POTASSIUM SERUM 4.4 MEQ/L (3.5-5.1)
[2018-05-30 08:00] VITALS: BP 102/69
[2018-05-30 08:10] LABS: HEMATOCRIT 31.9 % (36.0-47.0); HEMOGLOBIN 10.9 g/dl (12.0-15.5); MEAN CORPUSCULAR HEMOGLOBIN 29.9 pg (27.0-33.0); MEAN CORPUSCULAR HGB CONC 34.2 g/dl (32.0-36.5); MEAN CORPUSCULAR VOLUME 87.4 fl (80.0-96.0); RED BLOOD COUNT 3.65 10^6/uL (4.00-5.40)
[2018-05-30 08:12] LABS: PLATELET COUNT, AUTOMATED 85 10^3/uL (150-450); WHITE BLOOD COUNT 0.6 10^3/uL (4.0-10.0)
[2018-05-30] MEDS: PANTOPRAZOLE 40MG INJ (PROTONIX) (C9113) IV SCH (10:05)
[2018-05-30] MEDS: MEGESTROL 40 MG TAB PO SCH (10:06)
[2018-05-30] MEDS: FLUoxetine 20 MG CAP PO SCH (10:06)
[2018-05-30] MEDS: HEPARIN SOD (PORCINE) 5000 UNITS/ML VIAL SQ SCH ×2 (10:06→22:58)
[2018-05-30] MEDS: FILGRASTIM 300 MCG/0.5 ML SYRINGE (J1442 PER 1MCG) SC SCH (10:35)
[2018-05-30 10:51] LABS: PHOSPHORUS LEVEL 4.8 MG/DL (2.5-4.9)
[2018-05-30 10:52] LABS: URIC ACID 10.6 MG/DL (2.6-6.0)
[2018-05-30] MEDS: SIMETHICONE 80 MG CHEW TAB PO PRN ×2 (11:56→22:58)
[2018-05-30 12:00] VITALS: BP 105/65
[2018-05-30] MEDS ORDERED: EMLA CREAM 5GM (LIDOCAINE/PRILOCAINE) TOP ONE (12:00)
--- NOTE | 2018-05-30 14:52 | IPNPDOC ---
Text Note Date of Service The patient was seen on 05/30/18. NOTE Subjective: Patient feels well today. No abdominal pain. Had 1 episode of diar roger this morning. No chest pain or shortness of breath. Objective: Vitals: (see below) General: No acute distress, laying comfortably in bed. HEENT: Moist mucous membranes. Neck: No JVD or lymphadenopathy Cardiac: RRR, No murmurs Pulm: Clear to auscultation b/l. No wheezing, rhonchi Abd: NT/ND + BS Ext: No edema or cyanosis Labs (see below) Assessment/Plan 1. Renal failure likely secondary to chemotherapy, diarrhea. Improving. Appreciate nephrology input. Patient is okay with hemodialysis if need be and not improving. 2. Chemotherapy-induced pancytopenia. Platelets improving. No signs of infection. Discussed with Dr. Xiong who recommends Neupogen 300 daily until ANC is greater than 1500. 3. Anion gap metabolic acidosis likely secondary to renal failure. Improving. Receiving bicarbonate drip. Appreciate nephrology input. 4. Hypertension controlled. 5. Hypothyroidism on Synthroid. 6. Stage IV colon cancer on chemotherapy. Management per Dr. Xiong. DVT prophy: Heparin subcutaneous Overall prognosis guarded. VS,Fishbone, I+O VS, Fishbone, I+O Laboratory Tests 05/30/18 07:18 Red Blood Count 3.65 L, Mean Corpuscular Volume 87.4, Mean Corpuscular Hemoglobin 29.9, Mean Corpuscular Hemoglobin Concent 34.2, Red Cell Distribution Width 16.1 H, Calcium Level 8.5 L Vital Signs Date Time Temp Pulse Resp B/P (MAP) Pulse Ox O2 Delivery O2 Flow Rate FiO2 05/30/18 12:00 98.5 99 20 105/65 (78) 98 05/29/18 04:07 Room Air I&O- Last 24 Hours up to 6 AM 05/30/18 06:00 Intake Total 3575 ml Output Total 350 ml Balance 3225 ml ANDRÉS MCKEE MD May 30, 2018 14:52
[2018-05-30 16:00] VITALS: BP 101/59
--- NOTE | 2018-05-30 19:18 | CR ---
DATE OF CONSULTATION: 05/29/[address] Mejias of hospitalist service requested inpatient consult for medical oncology management recommendations. Cassandra Christianson is a 67-year-old woman with stage IV BRAF mutation positive high- risk colon cancer diagnosed in early 2017, presenting with a descending colon mass partially obstructing and widespread carcinomatosis. She declined diverting ostomy. She was initially treated with FOLFOX with partial response, received up to 10 cycles, eventually with stabilized disease but in April 2018, restaging scans showed disease progression with increased omental caking throughout the abdomen, though less ascites. Cassandra had required multiple dose reductions due to poor tolerance of oxaliplatin and 5-FU in the FOLFOX regimen. She was started on second-line palliative treatment with irinotecan/cetuximab on 05/21/2018. The overall plan was for her to receive three drugs - irinotecan/cetuximab/vemurafenib (the last a BRAF targeting agent), but the preauthorization for the vemurafenib had not been completed. She tolerated the initial treatment, but was admitted on 05/29/2018 reporting progressive fatigue, daily diarrhea, generalized weakness and was found to have grade 4 neutropenia, WBC 0.6, neutrophil count 16. IV hydration, given filgrastim and today at the bedside, reports feeling better, though continues to have diarrhea episodically up to 3 or 4 times a day. She denies any blood in the diarrhea. PAST MEDICAL HISTORY: Stage IV BRAF positive high-risk colon cancer diagnosed in June 2017. Hypertension. Hemochromatosis. Hypercholesterolemia. Depression/anxiety. Hypothyroidism. PAST SURGICAL HISTORY: Cholecystectomy. Hysterectomy. Appendectomy. Negative breast biopsy 2001. Right arm fracture repair. SOCIAL HISTORY: The patient is , lives with her , current smoker, 40 pack-year, low-dose smoking currently. Denies alcohol. FAMILY HISTORY: Noncontributory. ALLERGIES: No known drug allergies. MEDICATIONS: - acetaminophen p.r.n. pain - ondansetron 4 mg q.4 h IV nausea - levothyroxine 125 mcg - filgrastim 300 mcg daily targeting ANC 1500 - megestrol 160 mg daily - subcu heparin 5000 units b.i.d. - fluoxetine 40 mg daily - pantoprazole 40 mg - simethicone 80 mg q. 6 hours as needed - EMLA cream as needed PHYSICAL EXAMINATION: Cassandra is reclining in the bedside looking drawn but making good eye contact, conversing in full sentences, appearing comfortable. Temperature 96.6, blood pressure 119/71, heart rate 88, pulse ox 100%. Respiratory: Clear lungs to auscultation bilaterally, anterior and posteriorly. No wheezes, no rales. Cardiac: S1, S2 regular. Abdomen is soft. There is no point tenderness. No rebound tenderness. No palpable hepatosplenomegaly. Not able to palpate the colon mass in the left lower quadrant. No suprapubic or lower pelvic tenderness. Extremities: No pedal edema. LABORATORY DATA: WBC 0.5, platelets 73, hemoglobin 12, hematocrit 35. Sodium 133, potassium 5.5, BUN 87, creatinine 6.28, GFR 7, lactic acid 4.7. IMPRESSION: Stage IV colon cancer BRAF mutation positive. Grade 4 neutropenia, grade 2 thrombocytopenia, day 9, cycle 1 irinotecan/cetuximab. Though lactic acid is elevated, the patient's abdominal exam is benign. She is troubled mostly by episodic diarrhea, a known complication of irinotecan for which atropine can be given in low dose 0.25 mg subcu IV or IM to control diarrhea. I would hold on this, however, until all stool studies are negative for evidence of infection and support with IV hydration and continue filgrastim 300 mcg subcu daily until absolute neutrophil count is 1500. Thank you for this consult. Will follow. MTDD
[2018-05-30 20:00] VITALS: BP 104/55
[2018-05-31] VITALS (27 sets, daily range): BP systolic 70–111; BP diastolic 40–63
[2018-05-31] MEDS ORDERED: NS 1,000 ML IV ONE ×3 (01:45→03:15)
[2018-05-31 05:22] LABS: HEMATOCRIT 19.7 % (36.0-47.0); LYMPH % 22.2 % (24.0-44.0); MEAN CORPUSCULAR HEMOGLOBIN 29.8 pg (27.0-33.0); MEAN CORPUSCULAR VOLUME 87.6 fl (80.0-96.0); MONO # 0.1 10^3/uL (0.0-0.8); MONO % 18.1 % (0.0-5.0); NEUTROPHILS % 58.3 % (36.0-66.0); RED BLOOD COUNT 2.25 10^6/uL (4.00-5.40)
[2018-05-31 05:38] LABS: HEMOGLOBIN 6.7 g/dl (12.0-15.5); LYMPH # 0.2 10^3/uL (1.5-4.5); NEUTROPHILS # 0.4 10^3/uL (1.8-7.7); PLATELET COUNT, AUTOMATED 74 10^3/uL (150-450); WHITE BLOOD COUNT 0.7 10^3/uL (4.0-10.0)
[2018-05-31] MEDS: LEVOTHYROXINE 125MCG TABLET (0.125MG) PO SCH (06:00)
[2018-05-31 06:07] LABS: ALBUMIN 1.5 GM/DL (3.2-5.2); CALCIUM LEVEL 5.9 MG/DL (8.8-10.2); CREATININE FOR GFR 3.18 MG/DL (0.55-1.30); GLOMERULAR FILTRATION RATE 15.5 (>45); PHOSPHORUS LEVEL 2.7 MG/DL (2.5-4.9); POTASSIUM SERUM 3.2 MEQ/L (3.5-5.1); URIC ACID 7.8 MG/DL (2.6-6.0)
[2018-05-31] MEDS ORDERED: POTASSIUM CHLORIDE 10 MEQ SR TABLET PO ONE (08:15)
[2018-05-31] MEDS ORDERED: CALCIUM GLUCONATE 1,000 MG in D5W MINI-BAG PLUS 100 ML IV ONE (08:15)
[2018-05-31] MEDS ORDERED: DEXTROSE 50% 50 ML SYRINGE IV STA (08:25)
[2018-05-31] MEDS: MEGESTROL 40 MG TAB PO SCH (09:00)
[2018-05-31] MEDS: FLUoxetine 20 MG CAP PO SCH (09:02)
[2018-05-31] MEDS: PANTOPRAZOLE 40MG INJ (PROTONIX) (C9113) IV SCH (09:02)
--- NOTE | 2018-05-31 09:02 | IPN ---
DATE OF SERVICE: 05/30/2018 SUBJECTIVE: The patient was seen and examined at the bedside today morning. The patient reports that her nausea is getting better. She is getting IV fluid hydration. Urine output is improving. Creatinine is also trending down, down to 4.6 today. She continues to be on IV fluid hydration. OBJECTIVE: VITAL SIGNS: Temperature is 98.5 degrees Fahrenheit, blood pressure 105/65, pulse is 99, respiratory rate of 20, saturating 98% on room air. INTAKE AND OUTPUT: Urine output recorded as 350 mL yesterday, 890 mL so far today since overnight. Weight on the bed scale is 78.3 kg. PHYSICAL EXAMINATION: GENERAL: Patient is awake, alert, oriented times three, laying in bed in no apparent distress. HEAD AND NECK EXAM: Patient has alopecia secondary to chemotherapy. Mucous membranes are moist. Neck is supple. There is no jugular venous distension (JVD). CARDIOVASCULAR: S1, S2 regular rate. No murmur, rub or gallop. No edema of the bilateral lower extremities. RESPIRATORY: Chest is clear to auscultation bilaterally. Bilateral equal air entry. No rales or rhonchi. ABDOMEN: Soft. Positive bowel sounds. Nontender. Old surgical scars are noted. MUSCULOSKELETAL: No clubbing or cyanosis. Pulses are 2+. CENTRAL NERVOUS SYSTEM: No deficit. Power is 5/5 in all extremities. PSYCHIATRIC: Normal mood and affect. LAB REVIEW: CBC showed a WBC of 0.6, hemoglobin 10.9, platelets are 85. BMP showed sodium 132, potassium 4.4, chloride 103, bicarb is 14, BUN 79, creatinine is 4.6. Uric acid is 10.6, calcium is 8.5, phosphorous is 4.8. CURRENT INPATIENT MEDICATIONS: The patient's medications were all reviewed by me. She continues to be on IV bicarb containing fluids. No other change in the medications today as compared with yesterday. ASSESSMENT/PLAN: 1. Acute renal failure. It is secondary to dehydration, volume depletion secondary to severe nausea and vomiting, and possible use of nephrotoxic chemotherapeutic agent. 2. Normal anion gap metabolic acidosis. Patient came in with high anion gap lactic acidosis. Currently she is getting IV bicarb fluids. Renal function is improving. IV bicarb will be stopped once the serum bicarb improves above 20. 3. Hyperkalemia. Potassium is improving with IV fluid hydration. 4. Hyperuricemia. Most likely related to acute renal failure. Uric acid level is improving. 5. Neutropenia. Patient is already being seen by hematology/oncology. She is currently on Neupogen. 6. Hyponatremia. Patient had hypovolemic hyponatremia. Sodium is improving with IV fluid hydration. 7. Hyperphosphatemia. Phosphorous level is improving with improvement in the renal function. Phosphorous is 4.8 today. 8. Stage IV CA colon. Patient had chemotherapy and developed diarrhea, nausea and vomiting. Rest of the CA colon management is as per hematology/oncology team.
[2018-05-31 09:11] LABS: ABG BASE EXCESS -11.1 (-2.0-2.0); ABG HCO3 11.3 MEQ/L (22.0-26.0); ABG O2 SATURATION 96.1 % (95.0-99.0); ABG PARTIAL PRESSURE CO2 16.7 mmHg (35.0-45.0); ABG STANDARD HCO3 15.4 MEQ/L (22.0-26.0); ABG TOTAL CO2 11.8 MEQ/L (23.0-31.0); ABG pH (ARTERIAL) 7.447 UNITS (7.350-7.450)
[2018-05-31 09:16] LABS: ALBUMIN 1.9 GM/DL (3.2-5.2); BILIRUBIN,TOTAL 0.5 MG/DL (0.2-1.0); CALCIUM LEVEL 7.3 MG/DL (8.8-10.2); CREATININE FOR GFR 3.75 MG/DL (0.55-1.30); GLOMERULAR FILTRATION RATE 12.8 (>45); POTASSIUM SERUM 4.3 MEQ/L (3.5-5.1); TOTAL PROTEIN 4.5 GM/DL (6.4-8.2)
[2018-05-31 09:18] LABS: INR 1.27; PROTHROMBIN TIME 16.1 SECONDS (12.1-14.4)
[2018-05-31 09:19] LABS: PARTIAL THROMBOPLASTIN TIME 29.8 SECONDS (25.4-37.6)
[2018-05-31] MEDS ORDERED: GLUCAGON FOR INJ 1 MG VIAL (J1610) SC PRN (11:30)
[2018-05-31] MEDS ORDERED: GLUCOSE 4 GM CHEW TABLET PO PRN (11:30)
[2018-05-31] MEDS ORDERED: DEXTROSE 50% 50 ML SYRINGE IV PRN (11:30)
--- NOTE | 2018-05-31 12:14 | PHACANCOPD ---
PHARMACY VANCOMYCIN DOSING Pt Demographics Demographics Patient Age:67 , Weight:78.300 , Gender: female Adjusted Body Weight Date: 05/31/18, Adjusted Body Weight: [78.3] Kg Events Past 24 Hours Events Past 24 Hours: NO: Dialysis, Diuretic Therapy, Change in CrCl, Fever, Elevation in WBC, Pending Diagnostics, Pending Procedures, Other Vancomycin Vancomycin indication: SEPSIS Vancomycin Target Ranges: 15-20 mcg/ml Vancomycin Load Y/N: Yes Load Dose Date Time Vancomycin Load Dose: 1.5G Date: 05/31/18 Time: 13 Vancomycin Dose Date: 05/31/18. Current Vancomycin Dose: [INTERMITTENT] Intermittent Dosing?: Yes Labs Labs Vital Signs Label Value Date Time Patient Temperature 99.3 degrees F 05/31/18 1114 Temperature Source Temporal 05/31/18 1114 Patient Temperature 99.3 degrees F 05/31/18 1120 Temperature Source Temporal 05/31/18 1120 Patient Temperature 99.5 degrees F 05/31/18 1130 Temperature Source Temporal 05/31/18 1130 Blood Pressure Assessment 83/51 (62) 05/31/18 1120 Blood Pressure Assessment 79/47 (58) 05/31/18 1130 Item Value Date Time Creatinine 4.64 MG/DL H 05/30/18 0718 Creatinine 3.18 MG/DL H 05/31/18 0453 Creatinine 3.75 MG/DL H 05/31/18 0842 Micro Microbiology 05/29/18 Blood Culture - Preliminary, Resulted No Growth after 48 hours. All Specime... 05/29/18 Blood Culture - Preliminary, Resulted No Growth after 48 hours. All Specime... 05/29/18 Gastrointestinal Tract Panel (PCR) - Final, Complete 05/29/18 Urine Culture - Final, Complete Creatinine Clearance Date:05/31/18. Creatinine Clearance: [14.7ML/MIN]. Pending Labs VANCOMYCIN LEVEL 06/01/18 AM Assessment and Plan Maintaining Current Dose?: Yes Reason for dose change: No Dose Change Pharmacist Note Pharmacist Note Date: 05/31/18. Pharmacist note: PT is a 67 year old female being treated for sepsis goal trough 15-20mcg/ml. The patient has not been treated with vancomycin here at [facility] in the past. To achieve goal a 1.5g loading dose was started today. Due to current renal functioning we will dose this patient intermittently. A vancomycin level is scheduled for 06/01/18 AM. We will continue to monitor and adjust the dose as needed. MARYANNE BARGER PHARMACY May 31, 2018 12:14
[2018-05-31] MEDS ORDERED: VANCOMYCIN INTERMITTENT/PULSE DOSING BY CLINICAL PHARMACIST PER DOSING PROTOCOL XX SCH (12:15)
[2018-05-31] MEDS: PIPERACILLIN/TAZOBACTAM SOD 2.25 GM in D5W MINI-BAG PLUS 50 ML IV SCH ×2 (12:26→20:47)
[2018-05-31] MEDS: SODIUM BICARBONATE 75 MEQ in NS 0.45% 1,000 ML IV SCH (12:28)
[2018-05-31 12:45] LABS: HEMATOCRIT 33.5 % (36.0-47.0); HEMOGLOBIN 10.9 g/dl (12.0-15.5); MEAN CORPUSCULAR HEMOGLOBIN 29.6 pg (27.0-33.0); MEAN CORPUSCULAR HGB CONC 32.5 g/dl (32.0-36.5); RED BLOOD COUNT 3.68 10^6/uL (4.00-5.40)
[2018-05-31 12:54] LABS: PLATELET COUNT, AUTOMATED 96 10^3/uL (150-450); WHITE BLOOD COUNT 1.2 10^3/uL (4.0-10.0)
[2018-05-31] MEDS ORDERED: VANCOMYCIN HCL 1,000 MG, VIAL MATE ADAPTER 1 EACH in D5W 250 ML IV ONE (13:00)
[2018-05-31] MEDS ORDERED: IPRATROPIUM 0.5MG/ALBUTEROL 2.5MG INH SOL UD 3ML (DUONEB)(J7620) NEB PRN (13:45)
[2018-05-31] MEDS ORDERED: VANCOMYCIN HCL 500 MG in D5W MINI-BAG PLUS 100 ML IV ONE (14:00)
[2018-05-31] MEDS: NOREPINEPHRINE BITARTRATE 8 MG in D5W 492 ML IV SCH (14:02)
--- NOTE | 2018-05-31 14:28 | RO ---
DATE OF PROCEDURE: 05/31/2018 PREPROCEDURE DIAGNOSIS: Septic shock. POSTPROCEDURE DIAGNOSIS: Septic shock. PROCEDURE: Central line insertion. INDICATION: Shock. ATTENDING PHYSICIAN: Shanita Szymanski MD CHANNELER INSOLE: Dr. Guevara Consent was obtained from the patient prior to the procedure. Indication, risks and benefits were explained at length. PROCEDURE SUMMARY: A central line insertion practices form was completed by an independent observer. A time out was performed prior to the procedure. Full sterile technique was maintained throughout the procedure including surgical cap, mask with protective eyewear, full gown and sterile gloves. The patient was placed in Trendelenburg position. The left neck and chest region was prepped using chlorhexidine scrub and draped in a sterile fashion using a fenestrated drape and a sterile probe cover was employed. The left internal jugular vein was identified using the ultrasound. Anesthesia was achieved over the vein using 1% lidocaine. Using real time out of plane guidance, the introducer needle was inserted into the left internal jugular vein under direct ultrasound visualization. Venous blood was withdrawn. The syringe was removed and a Guidewire was advanced into the introducer needle. The introducer was removed over the Guidewire. The wire was visualized in the internal jugular vein by ultrasound. A small incision was made at the skin surface with a scalpel and a dilator was exchanged over the Guidewire. After appropriate dilation was obtained, the dilator was exchanged over the wire for a triple lumen central venous catheter. The wire was removed and the catheter was sutured in place at 20 cm. A sterile dressing was placed over the catheter at the insertion site. The patient tolerated the procedure without any hemodynamic compromise. At the time of procedure completion, all ports were aspirated and flushed properly. Postprocedure chest x-ray showed the left IJ triple lumen in place and no pneumothorax. ESTIMATED BLOOD LOSS: Less than 5 mL. MTDD
--- NOTE | 2018-05-31 14:36 | REP ---
PORTABLE CHEST: AP portable view of the chest was performed and compared to prior study of 05/29/2018. There is somewhat poor ventilation. Mild bibasilar atelectatic changes are present. Heart is not enlarged. Right central venous catheter is again seen with the tip in the superior vena cava. A left central venous catheter is now present with the tip in the superior vena cava. There is no pneumothorax. Electronically Signed by Enrique Lindsay MD 05/31/2018 02:44 P
[2018-05-31] MEDS: FILGRASTIM 300 MCG/0.5 ML SYRINGE (J1442 PER 1MCG) SC SCH (15:25)
--- NOTE | 2018-05-31 15:43 | CR ---
DATE OF CONSULTATION: 05/31/2018 HISTORY OF PRESENT ILLNESS: Patient is a 67-year-old female with a past medical history of metastatic colon cancer, who was initially treated with FOLFOX with partial response and initially had stabilized disease, however in April 2018 was noted on imaging to have progression of her metastatic disease with increased omental caking throughout the abdomen. The patient was started on second line palliative treatment with irinotecan/cetuximab on 05/21/2018. After she had received the first treatment of her second line chemotherapy, as per patient and , she started developing diarrhea with copious amounts of loose stool. No blood in her stool noted. No melena. No maroon or tarry colored stools. She also started having nausea and vomiting as well. In the past two days, the patient was noted to have worsening diarrhea as well as dizziness with presyncope, and she has also had decreased oral intake. The patient was therefore brought to the emergency room. She had denied any complaints of chest pains. No palpitations. No fevers or chills. She did have some shortness of breath prior to the hospital but did not have any coughing. She denied any abdominal pain as well. No increased lower extremity edema. Patient was admitted on 05/29/2018. On admission, she was noted to be significantly neutropenic and was started on Neupogen injections. Patient was also noted to have acute renal failure likely secondary initially to volume depletion in the setting of her diarrhea and vomiting with possible acute tubal necrosis (ATN) as well as a component of potentially nephrotoxic chemotherapy agents. She was being seen by nephrology and was started on a bicarbonate drip with initial improvement in her renal function. Patient was having urine output as well. Her metabolic acidosis was stable with the bicarbonate drip. Overnight, patient was noted to be hypotensive. She did continue to have episodes of diarrhea while she was admitted in the hospital. She was given 3 liters of normal saline boluses overnight for her hypotension. However, her blood pressure did not respond to the boluses. Her labs overnight showed a possible drop in her hemoglobin, however it could of been somewhat dilutional as well as a lab error. Her hemoglobin had gone from 10.9 to 6.7. She had not had any bloody bowel movements. No hematemesis and no melena. She denied any abdominal pain or flank pain to suggest any spontaneous retroperitoneal bleed. She was given 2 units of packed red blood cells (PRBC) after rapid response was called for hypotension with a rapid infuser. During this time, the patient had continued to mentating well. Did not have any altered mental status or confusion. The patient reports since admission to the hospital that she has noted some increasing shortness of breath as well as new cough productive of sputum occasionally. She denies any chest pains. PAST MEDICAL HISTORY: 1. Stage IV BRAF positive colon cancer diagnosed initially June 2017. 2. Hypertension. 3. Hemochromatosis. 4. Hypercholesterolemia. 5. Depression/anxiety. 6. Hypothyroidism. PAST SURGICAL HISTORY: 1. Cholecystectomy. 2. Hysterectomy. 3. Appendectomy. 4. Right arm fracture repair. SOCIAL HISTORY: The patient is , lives with her . Is a smoker of 1 pack a day for at least 40 years. Was currently smoking, however in the past 2 weeks since her symptoms have started she has significantly cut back to 1-3 cigarettes a day. No history of alcohol use. ALLERGIES: NO KNOWN DRUG ALLERGIES. CURRENT MEDICATIONS: - Tylenol as needed - Zofran as needed - Synthroid 125 mcg - filgrastim 300 mcg - megestrol - heparin subcu - fluoxetine - pantoprazole twice a day - simethicone as needed - sodium bicarbonate drip at 75 mL/h - Zosyn - vancomycin PHYSICAL EXAMINATION: VITAL SIGNS: Maximum temperature (Tmax) 99.5, pulse 103, respirations 30, blood pressure 83/51, oxygen saturation 100% on 2 liters nasal cannula. GENERAL: Patient is sitting in bed, in mild respiratory distress, is able to answer questions and speak in complete sentences HEENT: Normocephalic, atraumatic. There is some generalized alopecia. Dry mucous membranes noted. No scleral icterus. No thyromegaly or thyroid nodules palpated. CARDIAC: Tachycardic. Regular S1, S2. No murmurs appreciated. RESPIRATORY: Anteriorly some occasional rhonchi and wheeze on the right Trace crackles at the left base. On the right, there are increased crackles going up to the mid portion of the right lung posteriorly. ABDOMEN: Is soft. No tenderness palpated. No hepatomegaly. No suprapubic tenderness. EXTREMITIES: There is no increased lower extremity edema. Peripheral pulses are faint but palpable. LABS: WBC 0.7, hemoglobin was 6.7, platelets 74. Repeat labs after 2 units show WBC of 1.2, hemoglobin 10.9, platelets of 96. Chemistry: Sodium 131, potassium 4.3, bicarbonate 14, BUN 67, creatinine 3.75, down from 6.28 on admission, glucose 64. Calcium was 7.3. AST, ALT were normal. Total bilirubin was 0.5. Alkaline phosphatase 155. Albumin 1.9. ABG: pH 7.4, pCO2 16.7, pO2 of 82. On cultures, patient had a GI panel PCR on admission, which was negative, initial blood cultures on admission and urine cultures were no growth to date. ASSESSMENT AND PLAN: Patient is a 67-year-old female with a history of metastatic colon cancer, hypothyroidism, hyperlipidemia, who presented with complaints of diarrhea and nausea and vomiting after starting a new second line chemotherapy regimen. Patient was in acute renal failure as well as neutropenic and thrombocytopenic. She was seen by nephrology initially for her acute renal failure with metabolic acidosis likely in the setting of hypovolemia with possible ATN as well as possibly secondary to nephrotoxic chemotherapy agent. She was initially improving with her renal function and with her acidosis with a bicarbonate drip. She was also started on Neupogen injections for her neutropenia. Overnight patient became hypotensive, was given 3 liters normal boluses with no improvement in her blood pressures. She did not have any fevers overnight. She was noted on labs overnight to have a possible drop in her hemoglobin, for which she was given 2 units of PRBC. She does not appear to have any active bleeding at this time however, has not had any blood in the stool. No hematemesis. No melena. She denied abdominal pain or flank pain suggesting any retroperitoneal bleed. She has not had any falls or injuries recently. There was no evidence of hemolysis on her labs. She does complain of some increasing cough however, since admission and some increased shortness of breath. On exam, she does have some crackles and coarse wheeze/rhonchi on the right side suggesting a possible developing infectious process there. The patient's hypotension is likely in the setting of septic shock secondary with possible PNA. Her GI panel was negative for infectious etiology. - Will place left internal jugular (IJ) triple lumen central venous catheter for intravenous (IV) access and for initiation of pressors. Will start Levophed and titrate for a mean arterial pressure (MAP) above 65. - Will check a lactic acid and continue to trend. Will check a central venous pressure (CVP) using her central line. - Will hold off on further fluid boluses at this time and continue to monitor her ins and outs. The patient is still net positive currently. - Discussed with renal. The patient does have metabolic acidosis. However, her pH was normal and she does appear to be controlled on a bicarbonate drip. Her hyperkalemia has resolved and her uremia has also improved. She is still making urine and she does not appear to have any indications for urgent hemodialysis at this time. Suspect that she does have a component of some pulmonary edema given her increasing shortness of breath as well as with the rapid blood transfusion she received earlier today. She is now requiring 2 liters of nasal cannula supplementation. However, she does not appear to be fluid overloaded to the point that she needs emergent dialysis. She is tachypneic and she does have some mild respiratory distress, which is likely secondary to respiratory compensation for acidosis as well as to her possible pneumonia and some component of pulmonary edema. - Will get a chest x-ray to evaluate and also repeat blood cultures as well to evaluate for her sepsis. - Will repeat labs and continue to monitor her VBG. If patient has worsening respiratory distress, she may require use of noninvasive positive pressure ventilation. Patient is DO NOT RESUSCITATE and DO NOT INTUBATE. However, patient and her are agreeable to a trial of dialysis as well as with central line and pressors and to other medical interventions as needed on a case by case basis. - Will change her bicarbonate drip from 75 mEq to 150 mEq and lower rate to 50 mL/h, and will continue to monitor her pH on a repeat VBG. - Continue with broad spectrum antibiotics with vancomycin and Zosyn. Will followup cultures. Will also check a sputum culture. - Patient does have a history of 40 pack-year smoking. Denies a previous diagnosis of chronic obstructive pulmonary disease (COPD). However, she was noted to have faint episodes of coarse wheezing. Will start DuoNebs prn - DVT prophylaxis: Sequential compressive device (SCD). CODE STATUS: DNR/DNI MTDD
[2018-05-31] MEDS: SODIUM BICARBONATE 150 MEQ in D5W 1,000 ML IV SCH (15:47)
[2018-05-31 15:54] LABS: VENOUS BASE EXCESS -12.8 (-2.0-2.0); VENOUS HCO3 11.4 MEQ/L (23.0-27.0); VENOUS O2 SATURATION 89.5 % (60.0-80.0); VENOUS PARTIAL PRESSURE CO2 22.3 mmHg (38.0-50.0); VENOUS PARTIAL PRESSURE O2 60.8 mmHg (30.0-50.0); VENOUS PH 7.325 UNITS (7.330-7.430); VENOUS STANDARD HCO3 14.3 MEQ/L
[2018-05-31 16:15] LABS: CREATININE FOR GFR 3.28 MG/DL (0.55-1.30); POTASSIUM SERUM 4.2 MEQ/L (3.5-5.1)
--- NOTE | 2018-05-31 16:33 | IPNPDOC ---
Text Note Date of Service The patient was seen on 05/31/18. NOTE Subjective: Patient had episodes of hypotension overnight. Nursing notes that the patient also had a few episodes of diarrhea. No melanotic stools or hematochezia. No abdominal pain. No shortness of breath or chest pain. No cough. No rashes. In the a.m., the patient's hemoglobin was noted to be 6.7. The patient had received 3 L of normal saline overnight given her hypotension. Patient is persistently hypotensive. I have discussed the case with Dr. Xiong, who recommended local reduced PRBCs rather than irradiated. Patient was consented for blood patient was transferred to the ICU, infused 2 units of PRBC. Patient also had sepsis workup, including blood cultures, lactic acid, started on vancomycin and Zosyn. Dr. Szymanski was consulted as the patient's blood pressure has not improved with PRBC transfusion, and the concern for progression to shock, and pressor requirements. I have also spoken with Dr. Rowley who plans for possible CVVHD versus hemodialysis given the patient's renal failure as well as severe metabolic acidosis despite being on a bicarbonate drip. Objective: Vitals: (see below) General: No acute distress, laying comfortably in bed. HEENT: Moist mucous membranes. Neck: No JVD or lymphadenopathy Cardiac: RRR, No murmurs Pulm: Coarse crackles at the bases b/l. No wheezing, rhonchi. No use of accessory muscles. No conversational dyspnea. Abd: NT/ND + BS Ext: No edema or cyanosis Labs (see below) Assessment/Plan 1. Shock- ? Septic shock. No overt signs of infection at this time however given severe neutropenia, the patient was started on vancomycin and Zosyn pending further cultures. The patient did have a component of symptomatic anemia as well and transfused 2 units PRBC with improvement of hemoglobin. Hold off on any further IV fluids to prevent volume overload. Patient has started to develop coarse crackles given IV fluids. Dr. Szymanski consulted given the need for pressor requirements. Renal failure likely secondary to chemotherapy, diarrhea. Improving. Appreciate nephrology input. Patient is okay with hemodialysis if need be and not improving. 2. Chemotherapy-induced pancytopenia. Platelets improving. Discussed with Dr. Xiong who recommends Neupogen 300 daily until ANC is greater than 1500. 3. Anion gap metabolic acidosis likely secondary to renal failure. Improving. Bicarbonate drip increased. Appreciate nephrology/intensive care input. 5. Hypothyroidism on Synthroid. 6. Stage IV colon cancer on chemotherapy. Management per Dr. Xiong. Recent chemotherapy a week prior to admission. DVT prophy: SCDs Overall prognosis guarded. Patient family aware. They will like to attempt hemodialysis, however if the patient's clinical condition progressively declines, they will reassess goals of care. VS,Fishbone, I+O VS, Fishbone, I+O Laboratory Tests 05/31/18 04:53 Red Blood Count 2.25 L, Mean Corpuscular Volume 87.6, Mean Corpuscular Hemoglobin 29.8, Mean Corpuscular Hemoglobin Concent 34.0, Red Cell Distribution Width 16.2 H, Neutrophils (%) (Auto) 58.3, Lymphocytes (%) (Auto) 22.2 L, Monocytes (%) (Auto) 18.1 H, Eosinophils (%) (Auto) 0.0, Basophils (%) (Auto) 0.0, Neutrophils # (Auto) 0.4 L, Lymphocytes # (Auto) 0.2 L, Monocytes # (Auto) 0.1, Eosinophils # (Auto) 0.0, Basophils # (Auto) 0.0, Anion Gap 12, Uric Acid 7.8 H 05/31/18 08:42 Calcium Level 7.3 #L, Aspartate Amino Transf (AST/SGOT) 16, Alanine Aminotransferase (ALT/SGPT) 10 L, Lactate Dehydrogenase 111, Alkaline Phosphatase 155 H, Total Bilirubin 0.5, Total Protein 4.5 L, Albumin 1.9 #L 05/31/18 12:26 Red Blood Count 3.68 L, Mean Corpuscular Volume 91.0, Mean Corpuscular Hemoglobin 29.6, Mean Corpuscular Hemoglobin Concent 32.5, Red Cell Distribution Width 16.0 H 05/31/18 15:35 Calcium Level 7.0 L Vital Signs Date Time Temp Pulse Resp B/P (MAP) Pulse Ox O2 Delivery O2 Flow Rate FiO2 05/31/18 14:30 96 16 96/54 (68) 100 2.0 05/31/18 13:00 98.6 05/29/18 04:07 Room Air I&O- Last 24 Hours up to 6 AM 05/31/18 06:00 Intake Total 1557 ml Output Total 895 ml Balance 662 ml ANDRÉS MCKEE MD May 31, 2018 16:33
[2018-05-31 18:17] LABS: HEMATOCRIT 30.8 % (36.0-47.0); HEMOGLOBIN 10.6 g/dl (12.0-15.5); MEAN CORPUSCULAR HEMOGLOBIN 29.5 pg (27.0-33.0); MEAN CORPUSCULAR HGB CONC 34.4 g/dl (32.0-36.5); MEAN CORPUSCULAR VOLUME 85.8 fl (80.0-96.0); PLATELET COUNT, AUTOMATED 111 10^3/uL (150-450); RED BLOOD COUNT 3.59 10^6/uL (4.00-5.40); WHITE BLOOD COUNT 2.1 10^3/uL (4.0-10.0)
--- NOTE | 2018-05-31 22:29 | IPN ---
DATE: 05/31/2018 SUBJECTIVE: The patient was seen and examined at the bedside today, morning. The patient was very weak and lethargic in the morning. She was hypotensive with systolic blood pressure manually was barely 82 systolic. Last 24-hour events were noted. The patient was hypotensive overnight. She was having large volume diarrhea. She was given three liters normal saline boluses overnight; however, her blood pressure did not improve with the normal saline boluses. Because of the hypotension overnight, the patient has become oliguric. The patient continues to be acidotic despite being on bicarbonate IV fluids, and she continues to be neutropenic at this point as well. I discussed the patient's current status with the as well. However, they still want to be aggressive and want to try all possible means, but the patient still wishes to be DO NOT RESUSCITATE (DNR) with no respiratory resuscitation and no intubation, but if her renal function does not improve, they still want to have dialysis done. I called the rapid response while I was at the bedside. The case was discussed with the critical care and with the it teacher. The patient was transferred to intensive care unit (ICU) for further management. OBJECTIVE: VITAL SIGNS: Temperature 97 degrees Fahrenheit, blood pressure 78/45, pulse is 103, respiratory rate of 20, saturating 100% on nasal cannula at 2 liters. INTAKE/OUTPUT: Urine output recorded yesterday is 895 mL. Urine output recorded so far today since overnight is less than 500 mL. Weight on the bed scale is 78.3 kg. PHYSICAL EXAMINATION: GENERAL: The patient is very lethargic and drowsy, laying in bed, no apparent distress. HEAD AND NECK EXAM: The patient has alopecia secondary to chemotherapy. Mucous membranes are moist. Neck is supple. No jugular venous distention (JVD). She has a right-sided Port-a-Cath. CARDIOVASCULAR: S1, S2, regular rate. No murmur, rub or gallop. No edema of the bilateral lower extremities. RESPIRATORY: Mildly decreased breath sounds at the bases with mild crepitations. No active rales or rhonchi. ABDOMEN: Abdomen is soft. Positive bowel sounds. Nontender. No ascites. No organomegaly. MUSCULOSKELETAL: No clubbing or cyanosis. Pulses are 2+. CENTRAL NERVOUS SYSTEM (VIROLOGY TEACHER): No focal deficit. Power is 5/5 in bilateral upper extremities. However, the patient is very weak and lethargic at this point. LAB REVIEW: CBC showed a WBC of 0.7, hemoglobin 6.7, platelets 74. ABG done today morning showed a pH of 7.44, pCO2 of 16.7, pO2 82, bicarbonate 11.3, oxygen saturation is 96%. BMP done today, morning, showed sodium 131, potassium 4.3, chloride 103, bicarbonate 14, BUN 67, creatinine is 3.7, lactic acid 4.2, calcium 7.3, albumin 1.9. Microbiology: STAT blood cultures were done again, which are negative so far. Previous blood cultures are also negative so far. Stool occult blood is negative. CURRENT INPATIENT MEDICATIONS: The patient was given a dose of calcium gluconate IV, Levophed as needed to keep mean arterial pressure (MAP) above 60 was ordered today, morning. The patient got three one liter normal saline boluses overnight. She has been empirically started on Zosyn 2.25 grams IV every 8 hours. Her bicarbonate drip has been changed to 150 mEq of bicarbonate at 50 mL an hour. She was also given a dose of vancomycin one gram IV times one dose. She is on nebulizations. She continues to be on Neupogen 300 mcg subcu daily. She is also on fluoxetine 40 mg daily, levothyroxine 125 mcg daily, Megace 160 mg daily, Protonix 40 mg IV every 24 hours. She was given one dose of potassium chloride 40 mEq. No other change in the medications today as compared with yesterday. ASSESSMENT AND PLAN: 1. Shock. It might be hypovolemic shock; however, the patient is neutropenic. It should be treated as septic shock. The patient has lactic acidosis, neutropenia, hypotension. She has been transferred to ICU. She needs a central line, CVP monitoring, serial lactate monitoring. First set of blood cultures have been sent. Empiric antibiotic including vancomycin and Zosyn has been started. Fluid management as needed is as per critical care team. 2. Acute renal failure. The patient was nonoliguric up until yesterday until she became hypotensive. Initial plan was to get a tunneled dialysis catheter and start the patient on continuous veno-venous hemodiafiltration (CVVHDF); however, after fluid resuscitation and infusion of blood, the patient's blood pressures are coming up, and she started making urine again, so family wants to hold off at this point. However, I strongly believe given patient's metabolic acidosis and renal failure, the patient still might need dialysis over the next 24-48 hours. 3. Metabolic acidosis. It is secondary to a combination of renal failure, diarrhea, and lactic acidosis. Critical care team has changed the IV bicarbonate fluid to D5W plus 150 of bicarbonate at 50 mL an hour. Continue the IV bicarbonate at this point. No need of oral bicarbonate administration at this point, pH is optimal, patient is trying to hyperventilate. Patient is in metabolic acidosis and respiratory alkalosis. 4. Anemia. The patient's hemoglobin suddenly dropped from 10.9 to 6.7. Fecal occult blood test was done, which was negative. The patient was rapidly infused two units of packed red blood cell (PRBC) transfusion and hemoglobin has nicely improved to 10.9 now. 5. Neutropenia. The patient continues to be on Neupogen. Continue the reverse isolation precautions. The patient is being treated for shock and neutropenia with antibiotic and sepsis protocol as mentioned above. 6. Stage IV CA colon. Most recent chemotherapy was in the last week of April. The patient developed severe diarrhea and nausea, vomiting after the chemotherapy. Overall prognosis is poor. Total critical care time spent in the management of this patient today, morning, in the PCU and ICU was 1 hour.
[2018-06-01] VITALS (77 sets, daily range): BP systolic 79–126; BP diastolic 50–66
[2018-06-01 00:51] LABS: HEMATOCRIT 30.1 % (36.0-47.0); HEMOGLOBIN 10.6 g/dl (12.0-15.5); MEAN CORPUSCULAR HGB CONC 35.2 g/dl (32.0-36.5); MEAN CORPUSCULAR VOLUME 85.3 fl (80.0-96.0); PLATELET COUNT, AUTOMATED 102 10^3/uL (150-450); RED BLOOD COUNT 3.53 10^6/uL (4.00-5.40); WHITE BLOOD COUNT 2.3 10^3/uL (4.0-10.0)
[2018-06-01] MEDS: NOREPINEPHRINE BITARTRATE 8 MG in D5W 492 ML IV SCH (02:16)
[2018-06-01] MEDS: METOPROLOL 5 MG/5 ML VIAL IV SCH ×3 (02:59→03:29)
[2018-06-01] MEDS ORDERED: DIGOXIN INJ 0.5 MG/2 ML AMP (J1160) IV STA (03:19)
--- NOTE | 2018-06-01 03:45 | IPNPDOC ---
Text Note Date of Service The patient was seen on 06/01/18. NOTE I was called to the ICU new evaluate new onset Afib with RVR. Patient is asymp tomatic, was snoring upon onset, denies chest pain or SOB. O: Patient is on Levophed with a map of 66 (94/51), HR 133, RR 26 General: awake, no acute distress, resting comfortably Lungs: clear to auscultation bilaterally Heart: Tachycardic, irregular rate and rhythm, no murmurs, gallops, or rubs STAT EKG: Atrial fibrillation with RVR at about 126 bpm. Normal axis, T wave inversion in V4 compared to 05/29/18 EKG A: New onset Afib. Patient is on pressors already for hypotension. P: Patient is asymptomatic, not on anticoagulation secondary to low platelets. EKG confirms Afib with RVR. Because she is asymptomatic, I do not think rapid cardioversion is necessary, instead we will attempt rate control. 3 doses of metoprolol 5 mg have been ordered. If tachycardia still persists, then will use digoxin. Echocardiogram has been ordered for the morning, may consider anticoagulation, especially since the patient is already in a hypercoagulable state with a history of cancer and CHADSVASC score of 3 for annual risk of stroke. VS,Fishbone, I+O VS, Fishbone, I+O Laboratory Tests 05/31/18 04:53 Red Blood Count 2.25 L, Mean Corpuscular Volume 87.6, Mean Corpuscular Hemoglobin 29.8, Mean Corpuscular Hemoglobin Concent 34.0, Red Cell Distribution Width 16.2 H, Neutrophils (%) (Auto) 58.3, Lymphocytes (%) (Auto) 22.2 L, Monocytes (%) (Auto) 18.1 H, Eosinophils (%) (Auto) 0.0, Basophils (%) (Auto) 0.0, Neutrophils # (Auto) 0.4 L, Lymphocytes # (Auto) 0.2 L, Monocytes # (Auto) 0.1, Eosinophils # (Auto) 0.0, Basophils # (Auto) 0.0, Anion Gap 12, Uric Acid 7.8 H 05/31/18 08:42 Calcium Level 7.3 #L, Aspartate Amino Transf (AST/SGOT) 16, Alanine Aminotransferase (ALT/SGPT) 10 L, Lactate Dehydrogenase 111, Alkaline Phosphatase 155 H, Total Bilirubin 0.5, Total Protein 4.5 L, Albumin 1.9 #L 05/31/18 12:26 Red Blood Count 3.68 L, Mean Corpuscular Volume 91.0, Mean Corpuscular Hemoglobin 29.6, Mean Corpuscular Hemoglobin Concent 32.5, Red Cell Distribution Width 16.0 H 05/31/18 15:35 Calcium Level 7.0 L 05/31/18 18:00 Red Blood Count 3.59 L, Mean Corpuscular Volume 85.8, Mean Corpuscular Hemoglobin 29.5, Mean Corpuscular Hemoglobin Concent 34.4, Red Cell Distribution Width 15.6 H 06/01/18 00:41 Red Blood Count 3.53 L, Mean Corpuscular Volume 85.3, Mean Corpuscular Hemoglobin 30.0, Mean Corpuscular Hemoglobin Concent 35.2, Red Cell Distribution Width 15.7 H Vital Signs Date Time Temp Pulse Resp B/P (MAP) Pulse Ox O2 Delivery O2 Flow Rate FiO2 06/01/18 03:12 118 90/65 06/01/18 00:00 2.0 06/01/18 00:00 98.9 20 95 05/29/18 04:07 Room Air I&O- Last 24 Hours up to 6 AM 06/01/18 06:00 Intake Total 4252 ml Output Total 1005 ml Balance 3247 ml GME ATTESTATION GME ATTESTATION My faculty preceptor for this patient encounter was physically present during the encounter and was fully available. All aspects of the patient interview, examination, medical decision making process, and medical care plan development were reviewed and approved by the faculty preceptor. The faculty preceptor is aware and concurs with the plan as stated in the body of this note and will attest to such by his/her cosignature. ATTENDING NOTE After discussing case with finish production manager concierge receptionist Dr. Carver, it was recommended to use digoxin Attestation: I have supervised the medical insurance claims specialist and discussed patients evaluation and medical management. I agree with the outlined management plan as documented in the residents note. GUSTABO HOANG DO Jun 01, 2018 03:45 ESTHER PELLETIER MD Jun 02, 2018 06:50
[2018-06-01] MEDS: PIPERACILLIN/TAZOBACTAM SOD 2.25 GM in D5W MINI-BAG PLUS 50 ML IV SCH ×3 (04:00→20:56)
[2018-06-01 05:58] LABS: HEMATOCRIT 30.8 % (36.0-47.0); HEMOGLOBIN 10.8 g/dl (12.0-15.5); MEAN CORPUSCULAR HEMOGLOBIN 29.9 pg (27.0-33.0); MEAN CORPUSCULAR HGB CONC 35.1 g/dl (32.0-36.5); MEAN CORPUSCULAR VOLUME 85.3 fl (80.0-96.0); PLATELET COUNT, AUTOMATED 101 10^3/uL (150-450); RED BLOOD COUNT 3.61 10^6/uL (4.00-5.40); WHITE BLOOD COUNT 3.1 10^3/uL (4.0-10.0)
[2018-06-01] MEDS: LEVOTHYROXINE 125MCG TABLET (0.125MG) PO SCH (06:00)
[2018-06-01] MEDS ORDERED: DIGOXIN INJ 0.5 MG/2 ML AMP (J1160) IV ONE (06:15)
[2018-06-01 06:20] LABS: ALBUMIN 1.8 GM/DL (3.2-5.2); CALCIUM LEVEL 7.4 MG/DL (8.8-10.2); CREATININE FOR GFR 2.49 MG/DL (0.55-1.30); GLOMERULAR FILTRATION RATE 20.6 (>45); PHOSPHORUS LEVEL 2.6 MG/DL (2.5-4.9); POTASSIUM SERUM 3.3 MEQ/L (3.5-5.1); URIC ACID 7.2 MG/DL (2.6-6.0); VANCOMYCIN RANDOM 16.3 UG/ML
[2018-06-01 07:08] LABS: ATYPICAL LYMPH 1 % (0-5); LYMPHOCYTES 10 % (16-52); MONOCYTES 3 % (0-8); MYELOCYTES 1 % (0-0); NEUTROPHILS 74 % (35-75)
[2018-06-01 07:09] LABS: ANISOCYTOSIS 1+; PLATELET ESTIMATE DECREASED (NORMAL)
[2018-06-01 07:10] LABS: TOXIC GRANULATION 1+
--- NOTE | 2018-06-01 07:14 | IPN ---
MEDICAL ONCOLOGY INPATIENT FOLLOWUP DATE OF SERVICE: 05/31/2018 Cassandra had a hematocrit drop with hemoglobin 6.17, hematocrit 19.7, received 2 unit transfusion, is feeling better, has also received hydration and started on antibiotics. Stool is negative for C diff. Her rate of diarrhea has slowed down. She continues to be weak, bedridden. At the bedside accompanied by her , I brought up with Cassandra overall prognosis and the possibility that her cancer is progressing causing most of these symptoms in spite of recent chemotherapy. Her neutropenia is due to chemotherapy but the crit drop could possibly reflect tumor progression with erosion into blood vessels, though she has had no overt bleeding. 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 She is at high risk for bowel perforation. Should such an event occur her short term prognosis would be extremely poor. Cassandra is DO NOT RESUSCITATE but would like fluids and antibiotics trial, this is reasonable, but I did paint the picture of possible cancer progression despite recent chemotherapy. This would auger a very short life expectancy. Cassandra and her thanked me for the discussion. I answered all of their questions. I am unfortunately away for a few days but back early next week. For the short-term it is very reasonable for Cassandra to continue with fluids, antibiotics and supportive efforts, however, a major abrupt new hematocrit drop could signal a terminal bleeding event involving her bowel tumor. Will continue to follow, Dr. Diaz is contract project manager over the weekend.
[2018-06-01] MEDS ORDERED: POTASSIUM CHLORIDE 10 MEQ SR TABLET PO ONE (08:00)
[2018-06-01] MEDS: PANTOPRAZOLE 40MG INJ (PROTONIX) (C9113) IV SCH (09:49)
[2018-06-01] MEDS: MEGESTROL 40 MG TAB PO SCH (09:49)
[2018-06-01] MEDS: FLUoxetine 20 MG CAP PO SCH (09:50)
[2018-06-01] MEDS ORDERED: VANCOMYCIN HCL 750 MG, VIAL MATE ADAPTER 1 EACH in D5W 250 ML IV ONE (10:00)
--- NOTE | 2018-06-01 10:11 | PHACANCOPD ---
PHARMACY VANCOMYCIN DOSING Pt Demographics Demographics Patient Age:67 , Weight:81.300 , Gender: female Adjusted Body Weight Date: 05/31/18, Adjusted Body Weight: [78.3] Kg Events Past 24 Hours Events Past 24 Hours: YES: Change in CrCl; NO: Dialysis, Diuretic Therapy, Fever, Elevation in WBC, Pending Diagnostics, Pending Procedures, Other Vancomycin Vancomycin indication: SEPSIS Vancomycin Target Ranges: 15-20 mcg/ml Vancomycin Load Y/N: Yes Load Dose Date Time Vancomycin Load Dose: 1.5G Date: 05/31/18 Time: 13 Vancomycin Dose Date: 05/31/18. Current Vancomycin Dose: [INTERMITTENT] Intermittent Dosing?: Yes Labs Labs Item Value Date Time White Blood Count 3.1 10^3/uL L 06/01/18 0538 White Blood Count 2.3 10^3/uL L 06/01/18 0041 White Blood Count 2.1 10^3/uL L 05/31/18 1800 Creatinine 2.49 MG/DL H 06/01/18 0538 Creatinine 3.28 MG/DL H 05/31/18 1535 Random Vancomycin Level 16.3 UG/ML 06/01/18 0538 Micro Microbiology 05/31/18 Blood Culture, Received Pending 05/31/18 Blood Culture, Received Pending 05/29/18 Blood Culture - Preliminary, Resulted No Growth after 72 hours. All specime... 05/29/18 Blood Culture - Preliminary, Resulted No Growth after 72 hours. All specime... 05/31/18 Stool Occult Blood (JAMIE) - Final, Complete 05/29/18 Gastrointestinal Tract Panel (PCR) - Final, Complete 05/29/18 Urine Culture - Final, Complete Creatinine Clearance Date:05/31/18. Creatinine Clearance: [14.7ML/MIN]. Pending Labs VANCOMYCIN LEVEL 06/01/18 AM Assessment and Plan Maintaining Current Dose?: Yes Reason for dose change: No Dose Change Pharmacist Note Pharmacist Note 06/01/18: Random this AM resulted at 16.3mcg/ml. I have scheduled a one time dose of Vanco 750mg @1000. I have scheduled another level for tomorrow and we will go from there. Renal function is improved from yesterday. We will continue to monitor and adjust dose as needed. Date: 05/31/18. Pharmacist note: PT is a 67 year old female being treated for sepsis goal trough 15-20mcg/ml. The patient has not been treated with vancomycin here at [facility] in the past. To achieve goal a 1.5g loading dose was started today. Due to current renal functioning we will dose this patient intermittently. A vancomycin level is scheduled for 06/01/18 AM. We will continue to monitor and adjust the dose as needed. ALYSSA TIM PHARMACY Jun 01, 2018 10:11
[2018-06-01] MEDS ORDERED: ANGIOTENSIN II ACETATE 2.5 MG in NS 499 ML IV SCH (10:30)
--- NOTE | 2018-06-01 11:54 | IPNPDOC ---
Text Note Date of Service The patient was seen on 06/01/18. NOTE Subjective: Pt denies SOB/CP/Palpitations. No N/V/Abd pain. Pt and family are aware of the guarded prognosis, and are coming to terms of patient's terminal state. They would like to see how patient progresses next 24 hr. Objective: Vitals: (see below) General: No acute distress, laying comfortably in bed. HEENT: Moist mucous membranes. Neck: No JVD or lymphadenopathy Cardiac: RRR, No murmurs Pulm: Coarse crackles at the bases b/l. No wheezing, rhonchi. No use of accessor y muscles. No conversational dyspnea. Abd: NT/ND + BS Ext: No edema or cyanosis Labs (see below) Assessment/Plan 1. Shock- ? Septic shock. No overt signs of infection at this time however given severe neutropenia, the patient was started on vancomycin and Zosyn pending further cultures. The patient did have a component of symptomatic anemia as well and transfused 2 units PRBC with improvement of hemoglobin. Hold off on any further IV fluids to prevent volume overload. Patient has started to develop coarse crackles given IV fluids. Dr. Szymanski consulted given the need for pressor requirements. Pt currently on Levophed and Angiotensin II per Dr. Szymanski. Renal failure likely secondary to chemotherapy, diarrhea. Improving. Appreciate nephrology input. Patient is okay with hemodialysis if need be and not improving. 2. Chemotherapy-induced pancytopenia. Platelets improving. Discussed with Dr. Xiong who recommends Neupogen 300 daily until ANC is greater than 1500. D/c Neupogen as ANC>1500. 3. Anion gap metabolic acidosis likely secondary to renal failure. Improving. Bicarbonate drip increased. Appreciate nephrology/intensive care input. 5. Hypothyroidism on Synthroid. 6. Stage IV colon cancer on chemotherapy. Management per Dr. Xiong. Recent chemotherapy a week prior to admission. DVT prophy: SCDs Overall prognosis guarded. Patient family aware. They will like to attempt hemodialysis if need be, however if the patient's clinical condition progressively declines, they will reassess goals of care. VS,Fishbone, I+O VS, Fishbone, I+O Laboratory Tests 05/31/18 12:26 Red Blood Count 3.68 L, Mean Corpuscular Volume 91.0, Mean Corpuscular Hemoglobin 29.6, Mean Corpuscular Hemoglobin Concent 32.5, Red Cell Distribution Width 16.0 H 05/31/18 15:35 Calcium Level 7.0 L 05/31/18 18:00 Red Blood Count 3.59 L, Mean Corpuscular Volume 85.8, Mean Corpuscular Hemoglobin 29.5, Mean Corpuscular Hemoglobin Concent 34.4, Red Cell Distribution Width 15.6 H 06/01/18 00:41 Red Blood Count 3.53 L, Mean Corpuscular Volume 85.3, Mean Corpuscular Hemoglobin 30.0, Mean Corpuscular Hemoglobin Concent 35.2, Red Cell Distribution Width 15.7 H 06/01/18 05:38 Red Blood Count 3.61 L, Mean Corpuscular Volume 85.3, Mean Corpuscular Hemoglobin 29.9, Mean Corpuscular Hemoglobin Concent 35.1, Red Cell Distribution Width 15.7 H, Anion Gap 10, Uric Acid 7.2 H Vital Signs Date Time Temp Pulse Resp B/P (MAP) Pulse Ox O2 Delivery O2 Flow Rate FiO2 06/01/18 10:51 112 124/58 98 2.0 06/01/18 10:31 22 06/01/18 07:21 97.8 05/29/18 04:07 Room Air I&O- Last 24 Hours up to 6 AM 06/01/18 06:00 Intake Total 4487 ml Output Total 2160 ml Balance 2327 ml ANDRÉS MCKEE MD Jun 01, 2018 11:54
--- NOTE | 2018-06-01 13:23 | CR ---
DATE OF CONSULTATION: 06/01/2018 REFERRING PHYSICIAN: Dr. Fay Tomlin DIAGNOSIS: Atrial fibrillation. HISTORY OF PRESENT ILLNESS: Mrs. Christianson is previously unknown to me. She is a pleasant 67-year-old female who unfortunately has advanced colorectal cancer with carcinomatosis of the peritoneum and just received first course of second line chemotherapy on Sunday. She subsequently developed diarrhea to the point that she has not had any oral intake for several days. She was brought to the hospital and was found to be in acute renal failure. She was dehydrated and there is entertaining of possibility of sepsis. She has been treated with supportive management with pressors, ATB and hydration. Last night, went into atrial fibrillation with rapid ventricular response. She initially was given IV metoprolol which unfortunately led to a drop of her blood pressure and eventually a total of two doses of digoxin were given for a total of 1/2 mg. She then subsequently briefly converted to sinus rhythm, but when I saw her this morning she is in atrial fibrillation with ventricular rate around 100-110 beats per minute. She does not have any sensation of palpitations or chest pain. The abdominal pain has subsided to a great degree and she feels relatively comfortable. PAST MEDICAL HISTORY: 1. Colon cancer as above. 2. Hypertension. 3. Hemochromatosis. 4. Hypercholesterolemia. 5. Depression. 6. Hypothyroidism. PAST SURGICAL HISTORY: 1. Appendectomy. 2. Hysterectomy. 3. Cholecystectomy. 4. Right arm open reduction internal fixation (ORIF). OUTPATIENT MEDICATIONS: - Zofran as needed - Synthroid 125 a day - filgrastim 300 mcg a day - megestrol - fluoxetine - pantoprazole - simethicone - sodium bicarbonate SOCIAL HISTORY: The patient is and lives with her . She has been smoking for about 40 years. 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 FAMILY HISTORY: No longer relevant. REVIEW OF SYSTEMS: She denies any history of cardiac problems. The rest is as per history of present illness (HPI) or otherwise negative. She had some maroon looking stools, denies any history of shira GI bleeding per se. PHYSICAL EXAMINATION: Mrs. Christianson is a 67-year-old female who appears chronically, but not acutely ill. She is in intensive care unit (ICU) bed, receiving pressors through a central line in her left internal jugular (IJ) catheter. She also has a Port-A-Cath through the left IJ. Last blood pressure documented was 88/54. Heart rate has been in 90s to 110s. She is currently afebrile and saturation is 98% on 2 liters of oxygen by nasal cannula. Her central venous pressure was about 10. Lungs reveal occasional crackles, more on the right than left. I do not appreciate any wheezing and the air movement is decent. Heart exam reveals irregularly irregular rhythm. I do not appreciate gallop, rub or murmur. Abdomen is diffusely tender, but soft. Bowel sounds are present. Extremities have trace edema. Neurologically: She appears intact, even though her mood is certainly depressed, appropriate to her situation. LABORATORIES: Hemoglobin 10.8, hematocrit 30.8, platelet count 101,000 and WBC count 3.1. Basic metabolic panel with sodium 131, potassium 3.3, BUN 53, creatinine 2.5 and glucose 98. Lactic acid last night was down to 2.6. She was admitted with the first measured level of 4.2. ECG: The initial one from May 29 reveals sinus rhythm and is essentially normal with only minimal nonspecific abnormalities. ECG from last night reveals presence of atrial fibrillation with mildly tachycardiac response and nonspecific repolarization abnormalities. On her chest x-ray from yesterday placed after a central line, I do not appreciate any definite infiltrate or congestive heart failure. ASSESSMENT/PLAN: Mrs. Christianson is a 67-year-old female who has stage IV colon cancer with carcinomatosis of the peritoneum who presented to us about 4 days after starting new chemotherapy with profound diarrhea. She is quite anemic and received blood transfusion, hydration and antibiotics. She still requires pressors to maintain her blood pressure. As a complication, developed atrial fibrillation with rapid ventricular response (RVR) that was virtually asymptomatic. I do not believe that the atrial fibrillation should make a big impact on her further hospital course. She seems to be improving from the perspective of her primary problem. I would use as needed medications in order to keep her rate controlled. She received a total of 1/2 mg of digoxin and her heart rate at this point is appropriate. Digoxin is certainly not a good long-term choice due to her renal dysfunction, but we will take it as the situation evolves. She certainly cannot be anticoagulated because the risk far outweighs its potential benefit. She is DO NOT INTUBATE (DNI)/DO NOT RESUSCITATE (DNR) and the hope of her and her is that if she survives this hospitalization that she will be able to return home. She is DNI/DNR though and her condition is certainly guarded at best even in the short term. MELINDA
[2018-06-01] MEDS: SODIUM BICARBONATE 150 MEQ in D5W 1,000 ML IV SCH (13:25)
--- NOTE | 2018-06-01 13:45 | CCN ---
DATE: 06/01/2018 Patient was seen and examined this morning during bedside rounds. Overnight, the patient went into atrial fibrillation with a rapid ventricular response in the 120s. She was given metoprolol IV push, as well as Digoxin for her rapid rate with some improvement with her heart rates into the 100s. This morning, the patient reports that she is feeling improved. Her breathing has improved, and her cough has also improved as well. She denies any chest pain. She has had no fevers or chills. She denies any abdominal pain. She does continue to have diarrhea, had a large bowel movement overnight and has not had any episodes this morning. PHYSICAL EXAMINATION: Temperature: Temperature 98.1, pulse 108, respiratory rate in the 20s, blood pressure 91/56, oxygen saturation 95% on 2 liters nasal cannula. The patient is net positive 3 liters. She did have some urine output of approximately 1.2 L GENERAL: Patient is sitting in bed in no apparent distress, is able to converse in complete sentences. HEENT: Normocephalic, atraumatic. She has generalized alopecia. Mucous membranes are moist. There is no icterus. CARDIAC: Tachycardiac. Irregularly irregular. S1 and S2. No murmurs appreciated. PULMONARY: Anteriorly coarse rhonchi on the right and posteriorly there are crackles in the right base up to the right mid lung and some trace crackles at the left base, but there is no wheezing or rhonchi posteriorly. ABDOMEN: Soft. There is no tenderness to palpation. There is no hepatomegaly. EXTREMITIES: There is no lower extremity edema. LABS: WBC 3.1, hemoglobin 10.8, platelets 101. Chemistry: Sodium 131, potassium 3.3, chloride 103, bicarbonate 18, BUN 53, creatinine 2.49, glucose 98. Her guaiac was negative. There is no imaging today. ASSESSMENT AND PLAN: Patient is a 67-year-old female with a history of metastatic colon cancer, hypothyroidism, hyperlipidemia, who presented initially with complaints of diarrhea, nausea and vomiting after starting a new second line chemotherapy regimen. The patient was in acute renal failure, as well as neutropenic and thrombocytopenic. The patient also had significant metabolic acidosis in the setting of acute renal failure, which was likely secondary to hypovolemia with possible acute tubular necrosis (ATN), as well as possibly secondary to her nephrotoxic chemotherapy agent. She was treated with bicarbonate drip with initial improvement of her renal function. She was also given Neupogen injections for her neutropenia. Yesterday, the patient became hypotensive and was given multiple boluses of normal saline with no improvement in her blood pressure. There was also a possible drop in her hemoglobin, for which she was transfused 2 units of packed red blood cells with minimal improvement in her blood pressure at that time. She did not appear to have any active bleeding. Her guaiac was negative. She had no abdominal pain or flank pain to suggest any retroperitoneal bleed and had not had any falls or injuries recently. There was also no evidence of hemolysis on her laboratories. Suspect that her drop in hemoglobin may have been spurious and there may also have been some component of dilution as well. The patient was brought to the intensive care unit (ICU) for possible septic shock. She was given broad spectrum antibiotics and started on pressors with Levophed via a new left IJ triple lumen catheter. Overnight she was noted to go into atrial fibrillation, likely in the setting of her sepsis and vasopressors. She was given medications for rate control with some improvement in her heart rate. Patient with likely septic shock secondary to possible pneumonia. She does have some crackles and coarse rhonchi on the right side. Her chest x-ray showed possible developing infiltrate in her right lower lobe. Would continue with broad spectrum antibiotics at this time with vancomycin and Zosyn. - will followup cultures, including sputum culture if she is able to expectorate. - Would check a procalcitonin to help determine deescalation of antibiotics. - The patient was requiring 10 mcg per minute of Levophed for blood pressure support for her septic shock. Given her new atrial fibrillation, as well as with her renal failure, we will start Giapreza for vasopressor instead and wean off the Levophed. Would titrate the Giapreza for a mean arterial pressure above 65. - The patient has lactic acidosis in the setting of her septic shock, which did trend down. - Would hold off on further fluid boluses at this time and continue to monitor her input and output. If the patient requires, would give small fluid boluses as needed. would keep net even, cont to monitor if she has increased stool output may need prn fluid boluses. - The patient's renal failure is improving and she does have some improving urine output as well. She is currently on the bicarbonate drip of 150 mEq at 50 mL an hour and her bicarbonate is also trending up. Would continue to monitor and consider decreasing her bicarbonate drip as her renal failure and acidosis continues to improve. Appreciate renal consult and recs - Would monitor electrolytes and replete as needed. - Continue nasal cannula supplementation and would wean off as tolerated to maintain an oxygen saturation above 90s. The patient has improving tachypnea, likely as her acidosis is also improving. She is not requiring as much respiratory compensation. She likely also has a component of some pulmonary edema after her multiple fluid boluses and rapid blood transfusions yesterday. She reports her breathing and her cough has improved now. - Continue with DuoNeb as needed given her significant smoking history. Deep vein thrombosis (DVT) prophylaxis with sequential compression device (SCD). Her hemoglobin has remained stable and her platelets have also improved. Would restart heparin for deep vein thrombosis (DVT) prophylaxis as she is high risk given her active malignancy. Code status: DO NOT RESUSCITATE/DO NOT INTUBATE. Total critical care time spent, not including any procedures, approximately 45 minutes. MELINDA
--- NOTE | 2018-06-01 14:26 | ECGEPIP ---
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
[2018-06-01] MEDS: HEPARIN SOD (PORCINE) 5000 UNITS/ML VIAL SQ SCH (20:56)
[2018-06-02] VITALS (25 sets, daily range): BP systolic 91–145; BP diastolic 51–70
[2018-06-02] MEDS: PIPERACILLIN/TAZOBACTAM SOD 2.25 GM in D5W MINI-BAG PLUS 50 ML IV SCH ×3 (04:52→20:11)
[2018-06-02] MEDS: LEVOTHYROXINE 125MCG TABLET (0.125MG) PO SCH (05:08)
[2018-06-02 05:19] LABS: HEMATOCRIT 28.8 % (36.0-47.0); HEMOGLOBIN 10.1 g/dl (12.0-15.5); MEAN CORPUSCULAR HEMOGLOBIN 29.9 pg (27.0-33.0); MEAN CORPUSCULAR HGB CONC 35.1 g/dl (32.0-36.5); MEAN CORPUSCULAR VOLUME 85.2 fl (80.0-96.0); PLATELET COUNT, AUTOMATED 73 10^3/uL (150-450); RED BLOOD COUNT 3.38 10^6/uL (4.00-5.40); WHITE BLOOD COUNT 5.2 10^3/uL (4.0-10.0)
[2018-06-02 05:38] LABS: ATYPICAL LYMPH 1 % (0-5); LYMPHOCYTES 12 % (16-52); MONOCYTES 3 % (0-8); NEUTROPHILS 84 % (35-75); PLATELET ESTIMATE DECREASED (NORMAL)
[2018-06-02 05:39] LABS: ANISOCYTOSIS 1+
[2018-06-02 05:40] LABS: ALBUMIN 1.7 GM/DL (3.2-5.2); CALCIUM LEVEL 7.3 MG/DL (8.8-10.2); CREATININE FOR GFR 1.51 MG/DL (0.55-1.30); DOHLE BODIES 1+; GLOMERULAR FILTRATION RATE 36.7 (>45); PHOSPHORUS LEVEL 1.9 MG/DL (2.5-4.9); POTASSIUM SERUM 3.3 MEQ/L (3.5-5.1); TOXIC GRANULATION 1+; URIC ACID 5.5 MG/DL (2.6-6.0); VANCOMYCIN RANDOM 16.1 UG/ML
[2018-06-02] MEDS ORDERED: POTASSIUM PHOSPHATE INJ 20 MMOL in D5W 250 ML IV ONE ×2 (06:00→18:00)
--- NOTE | 2018-06-02 06:44 | PHACANCOPD ---
PHARMACY VANCOMYCIN DOSING Pt Demographics Demographics Patient Age:67 , Weight:81.300 , Gender: female Adjusted Body Weight Date: 05/31/18, Adjusted Body Weight: [78.3] Kg Vancomycin Vancomycin indication: SEPSIS Vancomycin Target Ranges: 15-20 mcg/ml Vancomycin Load Y/N: Yes Load Dose Date Time Vancomycin Load Dose: 1.5G Date: 05/31/18 Time: 13 Vancomycin Dose Date: 05/31/18. Current Vancomycin Dose: [1 GRAM Q24H] Intermittent Dosing?: No Labs Labs Laboratory Tests 06/02/18 04:53 Red Blood Count 3.38 L, Mean Corpuscular Volume 85.2, Mean Corpuscular Hemoglobin 29.9, Mean Corpuscular Hemoglobin Concent 35.1, Red Cell Distribution Width 16.0 H, Anion Gap 9, Uric Acid 5.5 Micro Microbiology 05/31/18 Blood Culture - Preliminary, Resulted No growth after 24 hours . All specim... 05/31/18 Blood Culture - Preliminary, Resulted No growth after 24 hours . All specim... 05/29/18 Blood Culture - Preliminary, Resulted No Growth after 72 hours. All specime... 05/29/18 Blood Culture - Preliminary, Resulted No Growth after 72 hours. All specime... 05/31/18 Stool Occult Blood (JAMIE) - Final, Complete 05/29/18 Gastrointestinal Tract Panel (PCR) - Final, Complete 05/29/18 Urine Culture - Final, Complete Creatinine Clearance Date:05/31/18. Creatinine Clearance: [45.1 ML/MIN].CALCULATED Pending Labs VANCOMYCIN TROUGH 06/03@0900 Assessment and Plan Maintaining Current Dose?: No Reason for dose change: Change in serum Cr Pharmacist Note Pharmacist Note Date: 06/02/18. Pharmacist note:Random Vancomycin level=16,1 this morning.Renal function continues to improve( CRCL=45.1 calculated).Will change from intermittent dosing to scheduled dose of 1 gram iv [id number]. Will draw trough tomorrow@0900 and assess at that point. 06/01/18: Random this AM resulted at 16.3mcg/ml. I have scheduled a one time dose of Vanco 750mg @1000. I have scheduled another level for tomorrow and we will go from there. Renal function is improved from yesterday. We will continue to monitor and adjust dose as needed. Date: 05/31/18. Pharmacist note: PT is a 67 year old female being treated for sepsis goal trough 15-20mcg/ml. The patient has not been treated with vancomycin here at [facility] in the past. To achieve goal a 1.5g loading dose was started today. Due to current renal functioning we will dose this patient intermittently. A vancomycin level is scheduled for 06/01/18 AM. We will continue to monitor and adjust the dose as needed. TYE OLIVARES PHARMACY Jun 02, 2018 06:44
[2018-06-02] MEDS: HEPARIN SOD (PORCINE) 5000 UNITS/ML VIAL SQ SCH (09:00)
--- NOTE | 2018-06-02 09:01 | ECHO ---
DATE OF PROCEDURE: 06/01/2018 REFERRING PHYSICIAN: Dr. Fay Tomlin Height 168 Weight 78 DIMENSIONS: IVS 1.0 LV 4.5 LVPW 1.0 LA 3.4 Aorta 2.5 IVC 2.0 Mitral E wave velocity 97 E prime septal 8.8 E prime lateral 16.5 FINDINGS: The study is of fair technical quality. The patient is in atrial fibrillation with rapid ventricular response. Left ventricle is of normal size and grossly normal systolic function. I estimate ejection fraction around 60%. No distinct segmental wall motion abnormalities are appreciated. The right ventricle also appears normal. Left atrium is mildly enlarged. Right atrium appears normal. Aortic valve appears mildly sclerotic but has three leaflets and normal mobility. There are also mild degenerative abnormalities of mitral valve but mobility of leaflets is preserved. Tricuspid and pulmonic valves appear normal. No pericardial effusion is present. Inferior vena cava is on upper limits of normal size but appropriately collapses with respiration. I would estimate overall normal central venous pressure. Aortic root is normal. Aortic arch and abdominal aorta were not well seen. Right pleural effusion was visualized. Doppler interrogation reveals no aortic stenosis or insufficiency. There is trace mitral, tricuspid and pulmonic insufficiency. Unfortunately, quality of TR jet was not sufficient to estimate pulmonary artery pressure. Evaluation of diastolic function is inconclusive due to underlying atrial fibrillation but considering only mildly enlarged left atrium and preserved tissue velocity in lateral mitral annulus, it seems unlikely that there would be advanced diastolic dysfunction. CONCLUSIONS: 1. Study is of fair technical quality. 2. Normal LV size with normal LV systolic function. 3. No significant valvular disease. 4. Normal or mildly elevated central venous pressure. 5. Unable to estimate pulmonary artery pressure. COMMENTS: SBE prophylaxis not recommended. MTDD
[2018-06-02] MEDS: LR 1,000 ML IV SCH ×2 (09:12→21:58)
[2018-06-02] MEDS: MEGESTROL 40 MG TAB PO SCH (09:12)
[2018-06-02] MEDS: FLUoxetine 20 MG CAP PO SCH (09:12)
[2018-06-02] MEDS: PANTOPRAZOLE 40MG TAB (PROTONIX) PO SCH (09:12)
[2018-06-02] MEDS: VANCOMYCIN HCL 1,000 MG, VIAL MATE ADAPTER 1 EACH in D5W 250 ML IV SCH (10:43)
--- NOTE | 2018-06-02 10:49 | IPNPDOC ---
Text Note Date of Service The patient was seen on 06/02/18. NOTE Subjective: No acute changes overnight. Feels well. Pt denies SOB/CP/Palpitat ions. No N/V/Abd pain. Tolerating diet. Objective: Vitals: (see below) General: No acute distress, laying comfortably in bed. HEENT: Moist mucous membranes. Neck: No JVD or lymphadenopathy Cardiac: RRR, No murmurs Pulm: Coarse crackles at the bases b/l. No wheezing, rhonchi. No use of accessory muscles. No conversational dyspnea. Abd: NT/ND + BS Ext: No edema or cyanosis Labs (see below) Assessment/Plan 1. Shock- likely Septic shock with ?pna as likely source. Cont vancomycin and Zosyn pending further cultures. The patient did have a component of symptomatic anemia as well and transfused 2 units PRBC with improvement of hemoglobin. Hold off on any further IV fluids to prevent volume overload. Patient has started to develop coarse crackles given IV fluids. Dr. Szymanski consulted given the need for pressor requirements. Pt currently on Levophed and Angiotensin II per Dr. Szymanski. Renal failure likely secondary to chemotherapy, diarrhea. Improving. Appreciate nephrology input. Patient is okay with hemodialysis if need be and not improving. 2. Chemotherapy-induced pancytopenia. Platelets improving. Discussed with Dr. Xiong who recommends Neupogen 300 daily until ANC is greater than 1500. D/c Neupogen as ANC>1500. 3. Anion gap metabolic acidosis likely secondary to renal failure. Improving. Bicarbonate drip increased. Appreciate nephrology/intensive care input. 4. Hypocalcemia/hypokalemia/hypophosph. Replaced. 5. Hypothyroidism on Synthroid. 6. Stage IV colon cancer on chemotherapy. Management per Dr. Xiong. Recent chemotherapy a week prior to admission. DVT prophy: SCDs Overall prognosis guarded. Patient family aware. They will like to attempt hemodialysis if need be, however if the patient's clinical condition progressively declines, they will reassess goals of care. VS,Fishbone, I+O VS, Fishbone, I+O Laboratory Tests 06/02/18 04:53 Red Blood Count 3.38 L, Mean Corpuscular Volume 85.2, Mean Corpuscular Hemoglobin 29.9, Mean Corpuscular Hemoglobin Concent 35.1, Red Cell Distribution Width 16.0 H, Anion Gap 9, Uric Acid 5.5 Vital Signs Date Time Temp Pulse Resp B/P (MAP) Pulse Ox O2 Delivery O2 Flow Rate FiO2 06/02/18 09:31 85 18 115/62 (79) 2.0 06/02/18 08:00 98.0 06/02/18 04:00 97 05/29/18 04:07 Room Air I&O- Last 24 Hours up to 6 AM 06/02/18 06:00 Intake Total 1974 ml Output Total 1595 ml Balance 379 ml ANDRÉS MCKEE MD Jun 02, 2018 10:49
[2018-06-02] MEDS ORDERED: CALCIUM GLUCONATE 1,000 MG in D5W MINI-BAG PLUS 100 ML IV ONE (11:00)
[2018-06-02 14:52] LABS: CALCIUM LEVEL 7.5 MG/DL (8.8-10.2); CREATININE FOR GFR 1.32 MG/DL (0.55-1.30); GLOMERULAR FILTRATION RATE 42.9 (>45); MAGNESIUM LEVEL 1.1 MG/DL (1.8-2.4); PHOSPHORUS LEVEL 2.6 MG/DL (2.5-4.9); POTASSIUM SERUM 3.7 MEQ/L (3.5-5.1)
[2018-06-02] MEDS: MAG SULF 1GM/100ML (MAG RUN) 1 GM in APPROPRIATE DILUENT 1 EA IV SCH ×2 (16:12→17:13)
[2018-06-03] VITALS (15 sets, daily range): BP systolic 101–134; BP diastolic 55–78
--- NOTE | 2018-06-03 03:14 | CCN ---
DATE: 05/29/2018 The patient is seen and examined this morning during rounds. The patient has been changed from Levophed to Giapreza for vasopressors and her blood pressures have responded very well and she had actually been tapered off of the Giapreza earlier this morning. Her heart rate has also improved. Her urine output has also improved as well since yesterday. The patient is feeling well this morning. She denies any chest pains, no shortness of breath, no cough. She has had no fevers or chills, and no abdominal pain. She does continue to have a decreased appetite but was able to tolerate a small sandwich yesterday and some small bites of her breakfast this morning. She does continue to have diarrhea and did have an episode yesterday evening and one smaller episode of loose stool this morning. PHYSICAL EXAMINATION: VITALS: Temperature 99.5, pulse of 80, respiratory rate 20, blood pressure 136/69, oxygen saturation 97% on 2 liters nasal cannula. INS: 1762 mL. OUTS: 2325 mL. GENERAL: The patient is sitting in bed in no apparent distress and is able to speak in complete sentences. HEENT: Normocephalic, atraumatic. Generalized alopecia. Moist mucous membranes. There is no scleral icterus. CARDIAC: Irregularly irregular. S1, S2, no murmurs appreciated. PULMONARY: Increased crackles at the left base and crackles on the right side more than the left with some decreased breath sounds, more on the right side and in the right base. There is no wheezing or rhonchi. ABDOMEN: Soft. No tenderness to palpation. No hepatomegaly. EXTREMITIES: There is some trace pedal edema. LABORATORIES: White blood cell (WBC) 5.2, hemoglobin 10.1, platelets 73. Sodium 134, potassium 3.3, chloride 103, bicarbonate 22, BUN 36, creatinine 1.51. Glucose 83. Albumin 1.7. No imaging today ASSESSMENT AND PLAN: The patient is a 67-year-old female with a history of metastatic colon cancer, hypothyroidism, hyperlipidemia who presented initially with complaints of diarrhea, nausea and vomiting after starting a second-line palliative chemotherapy regimen. The patient was in acute renal failure as well as neutropenic and thrombocytopenic. She was also noted to have significant metabolic acidosis in the setting of her acute renal failure. The patient was given a bicarbonate drip initially with improvement in her renal function as well as Neupogen for her neutropenia. The patient then became hypotensive with blood pressure not responding to multiple boluses of normal saline as well as with a transfusion of two units of packed red blood cells (PRBC) for a possible drop in her hemoglobins. The patient did not appear to have any active bleeding at the time and her guaiac was also negative. There was also no evidence of hemolysis on her laboratories and no evidence of any retroperitoneal bleed. The patient likely with septic shock in the setting of neutropenia, most likely pneumonia as she was noted to have some crackles and rhonchi on the right side and her chest x-ray showed a possible developing infiltrate in the right lower lobe. The patient was started initially on Levophed for vasopressor support however she did go into new atrial fibrillation likely in the setting of her sepsis and vasopressors. She was changed therefore to Giapreza yesterday with further improvement in her blood pressure. The Giapreza also has the initial benefit of being renal protective as well and can possibly improve outcome in renal failure. This morning the patient has been weaned off of the Giapreza. Would continue to monitor her blood pressure and maintain a mean arterial pressure (MAP) above 65. - The patient's renal function is also improving and she does have improving urine output. Would discontinue the bicarbonate drip and change her maintenance fluids to lactated Ringers which does have some bicarbonate in it as well. Would continue lactated Ringers at 75 mL an hour. Would attempt to keep her net even or possibly slightly negative. The patient is hypoalbuminemic and is at risk for third spacing. She does appear to have some increased crackles on exam this morning on her left side than previous. Continue broad-spectrum antibiotics for likely pneumonia. Would follow up her cultures which have been no growth to date. Would likely consider a seven-day course for her antibiotics. Will follow up her procalcitonin though to determine if can de-escalate or discontinue antibiotics sooner. Continue to monitor electrolytes and replete as needed. Continue nasal cannula supplementation and wean off as tolerated. Continue DuoNebs as needed given her significant smoking history. Deep vein thrombosis (DVT) prophylaxis. The patient was restarted on heparin given the improvement of her platelets; however she did have a slight drop again today. Will hold her heparin and start thromboembolic deterrent stockings (TEDs) and sequentials instead and continue to monitor her platelets. She is at high risk however for VTE given her active malignancy. CODE STATUS: DO NOT RESUSCITATE/DO NOT INTUBATE. Discussed with the patient's about general goals of care as she is not a candidate for any further palliative chemotherapy at this time and her prognosis is poor given her metastatic colon cancer. The patient's family is interested in a hospice evaluation as her goal is to go home. Total critical care time spent not including any procedures approximately 45 minutes. MELINDA
[2018-06-03] MEDS: PIPERACILLIN/TAZOBACTAM SOD 2.25 GM in D5W MINI-BAG PLUS 50 ML IV SCH ×2 (04:54→11:38)
[2018-06-03] MEDS: LEVOTHYROXINE 125MCG TABLET (0.125MG) PO SCH (05:25)
[2018-06-03 06:01] LABS: HEMATOCRIT 27.1 % (36.0-47.0); HEMOGLOBIN 9.2 g/dl (12.0-15.5); MEAN CORPUSCULAR HEMOGLOBIN 29.5 pg (27.0-33.0); MEAN CORPUSCULAR HGB CONC 33.9 g/dl (32.0-36.5); MEAN CORPUSCULAR VOLUME 86.9 fl (80.0-96.0); RED BLOOD COUNT 3.12 10^6/uL (4.00-5.40); WHITE BLOOD COUNT 4.9 10^3/uL (4.0-10.0)
[2018-06-03 06:27] LABS: PLATELET COUNT, AUTOMATED 84 10^3/uL (150-450)
--- NOTE | 2018-06-03 06:30 | IPN ---
DATE OF VISIT: HISTORY OF PRESENT ILLNESS: Mrs. Christianson is feeling better today. She says that she still has diarrhea but she is able to drink fluids. She does not vomit and she feels overall stronger. She was able to be weaned off pressor and her blood pressure remains in normotensive range. She has been in and out of atrial fibrillation throughout the day yesterday but as time goes she principally stays in sinus rhythm and has been in sinus rhythm for most of the night and as of this morning. She has no specific cardiac complaints. Her echocardiogram yesterday revealed preserved left ventricular systolic function. VITAL SIGNS: Blood pressure 115/62, heart rate in 80s afebrile. Saturation is in the high 90s on 2 liters of oxygen by nasal cannula. Her weight was not documented this morning but fluid balance yesterday was slightly negative. GENERAL: She is certainly alert and oriented and appropriate. HEENT/NECK: Her jugular venous pulse (JVP) is not high. LUNGS: Lungs are clear on the upper parts but she has some minimal end inspiratory rales at the bases on both sides. HEART: Exam reveals regular rhythm without gallop. ABDOMEN: Abdomen is soft, mildly tender. EXTREMITIES: No edema. NEUROLOGY: Neurologically is intact. LABORATORY: Hemoglobin 10.1, hematocrit 28.8, platelet count 73,000. Basic metabolic panel: Sodium was 134, potassium 3.3, BUN 36, creatinine 1.5, GFR 37 and glucose 83. ASSESSMENT/PLAN: Mrs. Christianson is a 67-year-old female who has stage IV colon cancer with carcinomatosis of the peritoneum presenting four days after chemotherapy with severe diarrhea and hypotension and renal failure. As a complicating event she went into atrial fibrillation with rapid ventricular response. After a couple doses of digoxin she started alternating between sinus rhythm and atrial fibrillation and currently she is mostly in sinus rhythm. I believe we should continue observation only. I think that as her metabolic condition improves it is likely that she will maintain sinus rhythm spontaneously. She is still quite thrombocytopenic and consequently I believe that the benefits of the anticoagulation are more than outweighed by the risk of bleeding. I am going to sign off her care. Please, if there are more problems down the road do not hesitate to contact me again. ROSAD
[2018-06-03 06:33] LABS: ALBUMIN 1.6 GM/DL (3.2-5.2); BLOOD UREA NITROGEN 19 MG/DL (7-18); CALCIUM LEVEL 7.2 MG/DL (8.8-10.2); CARBON DIOXIDE LEVEL 23 MEQ/L (21-32); CHLORIDE LEVEL 103 MEQ/L (98-107); CREATININE FOR GFR 0.91 MG/DL (0.55-1.30); GLOMERULAR FILTRATION RATE > 60.0 (>45); GLUCOSE, FASTING 73 MG/DL (70-100); PHOSPHORUS LEVEL 2.5 MG/DL (2.5-4.9); POTASSIUM SERUM 3.5 MEQ/L (3.5-5.1); SODIUM LEVEL 135 MEQ/L (136-145); URIC ACID 3.5 MG/DL (2.6-6.0)
[2018-06-03 07:10] LABS: ANISOCYTOSIS 1+; EOSINOPHILS 2 % (0-5); LYMPHOCYTES 7 % (16-52); MONOCYTES 6 % (0-8); NEUTROPHILS 84 % (35-75); PLATELET ESTIMATE DECREASED (NORMAL)
[2018-06-03] MEDS: HEPARIN SOD (PORCINE) 5000 UNITS/ML VIAL SQ SCH ×2 (09:26→21:02)
[2018-06-03] MEDS: FLUoxetine 20 MG CAP PO SCH (09:35)
[2018-06-03] MEDS: PANTOPRAZOLE 40MG TAB (PROTONIX) PO SCH (09:35)
[2018-06-03] MEDS: MEGESTROL 40 MG TAB PO SCH (09:35)
[2018-06-03] MEDS: VANCOMYCIN HCL 1,000 MG, VIAL MATE ADAPTER 1 EACH in D5W 250 ML IV SCH (10:09)
--- NOTE | 2018-06-03 11:26 | CCN ---
DATE: 06/03/2018 The patient was seen and examined this morning during bedside rounds. The patient's blood pressure has remained stable off of the Giapreza for more than 24 hours at this point. The patient's heart rate has also been well controlled. She has been able to be weaned down on her nasal cannula oxygen to 1 liter per minute and is satting well. She currently reports that she is feeling well. She has no chest pain. No increased shortness of breath. She has an occasional slight cough which is nonproductive. She has had no fevers or chills overnight and no abdominal pain. Her diarrhea has also improved. She did not have any episodes overnight and did not have any episodes this morning as well. PHYSICAL EXAMINATION: Vitals: Temperature 98.4, pulse 77, blood pressure 126/60, oxygen saturation 97% on 1 liter nasal cannula. Ins 3.7 liters, out 1.6 liters. General: The patient is sitting in bed in no apparent distress, able to speak in complete sentences. HEENT: Normocephalic, atraumatic. Generalized alopecia. Moist mucous membranes. There is no scleral icterus. Cardiac: Regular rate and rhythm. Normal S1, S2. No murmurs appreciated. Pulmonary: Crackles at the left base and some crackles on the right side posteriorly with some decreased breath sounds. No wheezing noted. Abdomen: Soft. No tenderness to palpation. No hepatosplenomegaly. Extremities: Some trace pedal edema bilaterally. LABS: WBC 4.9, hemoglobin 9.2, platelets 84. Chemistries: Sodium 135, potassium 3.5, chloride 103, bicarbonate 23, BUN 19, creatinine 0.91, glucose 73, phosphorus 2.5, magnesium 1.1, albumin 1.6. ASSESSMENT AND PLAN: The patient is a 67-year-old female with a history of metastatic colon cancer, hypothyroidism and hyperlipidemia who presented initially with complaints of diarrhea, nausea and vomiting after starting a second line palliative chemotherapy regimen. The patient was in acute renal failure as well as neutropenic and thrombocytopenic. She was also noted to have significant metabolic acidosis in the setting of her acute renal failure. The patient then became hypotensive with her blood pressures not responding to multiple boluses of normal saline as well as a transfusion of 2 units of packed red blood cells (PRBCs) for a possible drop in her hemoglobin. She did not appear to have any active bleeding at that time and her guaiac was also negative. There was no evidence of hemolysis on her labs and no evidence of any retroperitoneal bleed. Her hemoglobin responded appropriately to the 2 units of PRBCs and she has remained stable since then. The patient's neutropenia also improved with the Neupogen. In terms of her renal failure, the patient was continued on a bicarbonate infusion as well as started on vasopressor support for her likely septic shock, and has had improvement in her renal function. The patient's sepsis is most likely secondary to pneumonia. She was noted to have some crackles and rhonchi on the right side compared to the left, and chest x-ray showing a possible developing infiltrate in her right lower lobe. The patient was started on broad spectrum antibiotics with improvement. The patient has been weaned off of the Giapreza and her blood pressures have remained stable for more than 24 hours. The patient's renal function has also improved. She is currently on maintenance fluid with lactated ringers at 75 mL/hr. Would discontinue her maintenance fluid and encourage by mouth intake. The patient is hypoalbuminemic and she has poor nutritional status. The patient was increased to a high protein diet and will continue to encourage optimizing her nutritional status. Continue broad spectrum antibiotics for likely pneumonia. Would treat with a seven day course of antibiotics. Would check a procalcitonin to determine earlier discontinuation of antibiotics or de-escalation depending on the results. Continue to monitor electrolytes and replete as needed. Would wean down nasal cannula supplementation and wean off to room air if possible. Continue DuoNeb as needed given her significant smoking history. Would discontinue Burk and do a trial of void today. Would also order physical therapy (PT) and have patient get out of bed as tolerated. Deep vein thrombosis (DVT) prophylaxis with thromboembolic deterrent stockings (TEDS) and sequential compression devices (SCDS). Continue to monitor her platelets. Would restart with Lovenox as soon as possible as she is at high risk for venous thromboembolism (VTE) given her active malignancy. CODE STATUS: DO NOT RESUSCITATE (DNR)/DO NOT INTUBATE (DNI). Discussed with the patient today about goals of care. She and her are interested in a hospice evaluation. Referral is placed. TOTAL CRITICAL CARE TIME SPENT: Not including any procedures, approximately 45 minutes. Please do not hesitate to call if there are any further questions or concerns. ROSAD
--- NOTE | 2018-06-03 12:01 | PHACANCOPD ---
PHARMACY VANCOMYCIN DOSING Pt Demographics Demographics Patient Age:67 , Weight:81.000 , Gender: female Adjusted Body Weight Date: 05/31/18, Adjusted Body Weight: [78.3] Kg Vancomycin Vancomycin indication: SEPSIS Vancomycin Target Ranges: 15-20 mcg/ml Vancomycin Load Y/N: Yes Load Dose Date Time Vancomycin Load Dose: 1.5G Date: 05/31/18 Time: 13 Vancomycin Dose Date: 05/31/18. Current Vancomycin Dose: [1 GRAM Q24H] Intermittent Dosing?: No Labs Labs Vancomycin trough scheduled 06/04/18 @0900 Micro Microbiology 05/31/18 Blood Culture - Preliminary, Resulted No Growth after 48 hours. All Specime... 05/31/18 Blood Culture - Preliminary, Resulted No Growth after 48 hours. All Specime... 05/29/18 Blood Culture - Final, Complete NO GROWTH AFTER 5 DAYS 05/29/18 Blood Culture - Final, Complete NO GROWTH AFTER 5 DAYS 05/31/18 Stool Occult Blood (JAMIE) - Final, Complete 05/29/18 Gastrointestinal Tract Panel (PCR) - Final, Complete 05/29/18 Urine Culture - Final, Complete Creatinine Clearance 06/03/18: Est CrCl = 61ml/min Pending Labs VANCOMYCIN TROUGH 06/03@0900 Assessment and Plan Maintaining Current Dose?: No Reason for dose change: Trough too low Pharmacist Note Pharmacist Note 06/03/18: Vancomycin trough level today resulted at 11.9mcg/ml. The patient's crcl continues to improve at 0.91 today from 1.51 yesterday. Given the patient's improvement in kidney function we will increase her current regimen from 1g IV Q24H to 1g IV Q12H. A follow-up vancomycin trough level has been scheduled to be drawn tomorrow, 06/04/18, @0900. We will continue to monitor and adjust the dosing further if needed. Date: 06/02/18. Pharmacist note:Random Vancomycin level=16,1 this morning.Renal function continues to improve( CRCL=45.1 calculated).Will change from intermittent dosing to scheduled dose of 1 gram iv [id number]. Will draw trough tomorrow@0900 and assess at that point. 06/01/18: Random this AM resulted at 16.3mcg/ml. I have scheduled a one time dose of Vanco 750mg @1000. I have scheduled another level for tomorrow and we will go from there. Renal function is improved from yesterday. We will continue to monitor and adjust dose as needed. Date: 05/31/18. Pharmacist note: PT is a 67 year old female being treated for sepsis goal trough 15-20mcg/ml. The patient has not been treated with vancomycin here at [facility] in the past. To achieve goal a 1.5g loading dose was started today. Due to current renal functioning we will dose this patient intermittently. A van comycin level is scheduled for 06/01/18 AM. We will continue to monitor and adjust the dose as needed. LOBITO [facility]ANG [facility] Jun 03, 2018 12:00
--- NOTE | 2018-06-03 14:20 | IPNPDOC ---
Text Note Date of Service The patient was seen on 06/03/18. NOTE Subjective: No acute changes overnight. Pt denies SOB/CP/Palpitations. No N/ V/Abd pain. No diarrhea overnight. Objective: Vitals: (see below) General: No acute distress, laying comfortably in bed. HEENT: Moist mucous membranes. Neck: No JVD or lymphadenopathy Cardiac: RRR, No murmurs Pulm: Coarse crackles at the bases b/l. No wheezing, rhonchi. No use of accessory muscles. No conversational dyspnea. Abd: NT/ND + BS Ext: No edema or cyanosis Labs (see below) Assessment/Plan 1. s/p Shock- likely Septic shock with ?pna as likely source. Cont vancomycin and Zosyn pending further cultures. The patient did have a component of symptomatic anemia as well and transfused 2 units PRBC with improvement of hemoglobin. Hold off on any further IV fluids to prevent volume overload. Patient has started to develop coarse crackles given IV fluids. Dr. Szymanski consulted given the need for pressor requirements. s/p Levophed and Angiotensin II per Dr. Szymanski. Renal failure likely secondary to chemotherapy, diarrhea. Improving. Appreciate nephrology input. Patient is okay with hemodialysis if need be and not improving. 2. Chemotherapy-induced pancytopenia. Platelets improving. Discussed with Dr. Xiong who recommends Neupogen 300 daily until ANC is greater than 1500. D/c Neupogen as ANC>1500. 3. s/p Anion gap metabolic acidosis likely secondary to renal failure. Improv ing. Bicarbonate drip increased. Appreciate nephrology/intensive care input. 4. Hypocalcemia/hypokalemia/hypophosph. Replaced. 5. Hypothyroidism on Synthroid. 6. Stage IV colon cancer on chemotherapy. Management per Dr. Xiong. Recent chemotherapy a week prior to admission. DVT prophy: SCDs Overall prognosis guarded. Patient family aware. They will like to attempt hemodialysis if need be, however if the patient's clinical condition progressively declines, they will reassess goals of care. Hospice consulted. VS,Fishbone, I+O VS, Fishbone, I+O Laboratory Tests 06/03/18 05:36 Anion Gap 9, Uric Acid 3.5 06/03/18 05:37 Red Blood Count 3.12 L, Mean Corpuscular Volume 86.9, Mean Corpuscular Hemoglobin 29.5, Mean Corpuscular Hemoglobin Concent 33.9, Red Cell Distribution Width 16.2 H Vital Signs Date Time Temp Pulse Resp B/P (MAP) Pulse Ox O2 Delivery O2 Flow Rate FiO2 06/03/18 12:00 1.0 06/03/18 06:00 77 126/60 (82) 06/03/18 04:00 98.4 18 97 05/29/18 04:07 Room Air I&O- Last 24 Hours up to 6 AM 06/03/18 06:00 Intake Total 3785.6667 ml Output Total 1905 ml Balance 1880.6667 ml ANDRÉS MCKEE MD Jun 03, 2018 14:20
--- NOTE | 2018-06-03 16:16 | IPN ---
DATE: 06/01/2018 SUBJECTIVE: Patient was seen and examined at the bedside today morning in the intensive care unit (ICU). Patient is awake and alert. Yesterday she was transferred to ICU because of hypotension and shock. She is currently on Levophed and angiotensin II intravenous (IV) infusions. Her urine outpatient is improving. Patient is nonoliguric at this point. Renal function is also improving. Creatinine is down to 2.4 today. Patient reports that she feels much better today as compared with yesterday. Vasopressors are being slowly weaned down. OBJECTIVE: VITAL SIGNS: Temperature is 98 degrees Fahrenheit, blood pressure 96/51, pulse 88, respiratory rate of 18, saturating 96% on nasal cannula at 2 liters. Intake and output: Urine output recorded is 1.2 liters yesterday, 1.9 liters so far today since overnight. Weight in the bed scale is 81.3 kg. PHYSICAL EXAMINATION: GENERAL: Patient is awake, alert, oriented times three, weak and lethargic, laying in bed. HEAD and NECK EXAM: Patient has alopecia. Mucous membranes are moist. Neck is supple. She has a left internal jugular (IJ) triple lumen catheter and right IJ Port-a-Cath. CARDIOVASCULAR: S1, S2, regular rate. No murmur, rub, or gallop. No edema of the bilateral lower extremities. RESPIRATORY: Chest is clear to auscultation bilaterally. Bilateral equal air entry. No rales or rhonchi. ABDOMEN: Soft, positive bowel sounds, nontender. No ascites. No organomegaly. MUSCULOSKELETAL: No clubbing or cyanosis. Pulses are 2+. CENTRAL NERVOUS SYSTEM ([employer]): No focal deficit. Power is 5/5 in bilateral upper extremities. LABORATORY REVIEW: CBC showed WBC 3.1, hemoglobin 10.8, platelets are 101. BMP today morning showed sodium 131, potassium 3.3, chloride 103, bicarbonate 18, BUN 53, creatinine 2.4, lactic acid 2.6, uric acid 7.2, calcium 7.4, phosphorous 2.6, albumin 1.8. MICROBIOLOGY: Preliminary blood cultures sent yesterday are negative so far. IMAGING: There is no new x-ray available today. CURRENT INPATIENT MEDICATIONS: Patient's medications were all reviewed by me. She is currently on IV Levophed infusion at 5 mcg which is being weaned down now. She is on angiotensin II infusion. She is Zosyn 2.25 grams every 8 hours. She is on sodium bicarbonate drip 150 mEq at 50 mL/hour. Patient was given a dose of digoxin 0.25 mg IV times two doses because of atrial fibrillation at night. Neupogen has been stopped because of improving white cell count. Patient was given a dose of potassium chloride 40 mEq by mouth times one dose. ASSESSMENT AND PLAN: 1. Shock, multifactorial, hypovolemia secondary to diarrhea and possible sepsis in the setting of neutropenia. Patient is still dependent on vasopressor support, however Levophed is being weaned down. She is on angiotensin II and responding very well to it. Continue current empiric antibiotic coverage. Cultures are negative so far. 2. Acute renal failure. Patient has acute nonoliguric renal failure. She is responding to IV fluid and with improvement of her blood pressure urine output is also improving. Volume status is optimal. Acidosis is getting better. I would continue to monitor the renal function without dialysis at this point. Maintain mean arterial pressure above 60. Continue IV bicarbonate fluid. I discussed with the critical care team to give the patient IV fluid boluses as needed for diarrhea episodes. 3. Metabolic acidosis. It is secondary to large volume diarrhea and acute renal failure and lactic acidosis secondary to shock. Patient is already getting sodium bicarbonate containing IV fluids. IV bicarbonate will be stopped once the serum bicarbonate improves above 20. 4. Neutropenia. Patient's white cell count has improved to 3.1. Neupogen has been stopped today. 5. Hypokalemia. Patient has been given potassium chloride 40 mEq by mouth times one dose. 6. New onset atrial fibrillation. Patient was given digoxin IV overnight. Cardiology is on board. Rest of the management is as per cardiology recommendations. 7. Anemia. Patient was given two units of packed red blood cell (PRBC) transfusion yesterday. Hemoglobin is staying stable. No signs of active bleeding at this point. Total critical care time spent in the management of this patient today morning in the intensive care unit (ICU) was 45 minutes.
[2018-06-03] MEDS: PIPERACILLIN/TAZOBACTAM SOD 3.375 GM in D5W MINI-BAG PLUS 50 ML IV SCH (18:15)
[2018-06-03] MEDS ORDERED: VANCOMYCIN HCL 1,000 MG, VIAL MATE ADAPTER 1 EACH in D5W 250 ML IV SCH (22:00)
--- NOTE | 2018-06-03 22:02 | IPN ---
DATE: 06/02/2018 SUBJECTIVE: Patient is seen and examined this morning at the bedside in the intensive care unit. Her pressor was weaned off at 9 o'clock this morning. Her mean arterial pressures (MAPs) have been obtained above 65. Her diet was advanced and she is tolerating it though she reports poor appetite and ongoing diarrhea. Vital signs: Temperature 99.1, pulse 81, respiratory rate 18, blood pressure 97/55, saturating 95% on 2 liters nasal cannula. Intake yesterday was 1900, urine output yesterday was 2325. Weight in the bed scale today is not recorded. General: Patient is seen lying in bed in the intensive care unit, pleasant, appears older than stated age, chronically ill-appearing. Family present at the bedside. Alopecia. Extraocular muscles are intact. Moist tongue. Nasal cannula in place. Heart sounds are regular. There is a central line present in the left internal jugular (IJ). Lungs show mild crackle at the base. No accessory muscle use. No tachypnea. Abdomen is soft and nontender. Genitourinary shows Burk catheter with urine. Extremities are negative for edema. LABORATORY DATA: Sodium 135, potassium 3.7, bicarbonate 21, BUN 29, creatinine 1.3, magnesium 1.1, hemoglobin 10.1. INPATIENT MEDICATIONS: She received 1 gram of IV calcium gluconate today. She is on lactated Ringers at 75 mL/hour. She is off pressors. She continues on Zosyn 2.25 grams IV every 8 hours. She received potassium phosphate total of 40 mmol today. She continues on vancomycin 1 gram IV every 24 hours. Remainder of medications are unchanged from prior. PROBLEMS: 1. Acute kidney injury in the setting of nausea, vomiting, diarrhea, and septic shock likely secondary to pneumonia status post multiple boluses of IV fluids and status post pressor support and broad-spectrum antimicrobials with subsequent improvement of renal function with creatinine almost back now to her usual baseline. She continues with supportive care. She is still having poor oral intake and she is still having diarrhea. She continues on lactated Ringers. Her metabolic acidosis has resolved. There is no further need for bicarbonate containing fluids at present. She is off pressor support. Continue with daily renal panel. 2. Status post septic shock due to probable pneumonia. She continues on empiric antimicrobials. Blood cultures are negative thus far. She is afebrile and hemodynamically stable. She does continue on IV fluids managed per apple thinner as she is still having diarrhea and having poor oral intake. 3. Multiple electrolyte abnormalities. Hypokalemia, hypophosphatemia, hypomagnesemia. Patient is status post potassium, phosphorous, and magnesium supplementation. Her corrected calcium is acceptable and her serum sodium is up trending and almost normal range. DISPOSITION: Patient's renal function has recovered. Her acidemia has improved. She is no longer on bicarbonate containing fluids. [employer]ft Driver is administering IV fluids (IVF) depending on the patient's diarrhea and oral intake. Nephrology is signing off at present. Please reconsult as needed.
[2018-06-04] MEDS: PIPERACILLIN/TAZOBACTAM SOD 3.375 GM in D5W MINI-BAG PLUS 50 ML IV SCH ×4 (00:20→18:26)
[2018-06-04] MEDS: LEVOTHYROXINE 125MCG TABLET (0.125MG) PO SCH (05:51)
[2018-06-04 06:00] VITALS: BP 143/66
[2018-06-04 06:40] LABS: HEMATOCRIT 29.4 % (36.0-47.0); HEMOGLOBIN 9.9 g/dl (12.0-15.5); MEAN CORPUSCULAR HEMOGLOBIN 29.8 pg (27.0-33.0); MEAN CORPUSCULAR HGB CONC 33.7 g/dl (32.0-36.5); MEAN CORPUSCULAR VOLUME 88.6 fl (80.0-96.0); RED BLOOD COUNT 3.32 10^6/uL (4.00-5.40); WHITE BLOOD COUNT 4.6 10^3/uL (4.0-10.0)
[2018-06-04 06:43] LABS: PLATELET COUNT, AUTOMATED 96 10^3/uL (150-450)
[2018-06-04 06:59] LABS: ATYPICAL LYMPH 1 % (0-5); EOSINOPHILS 2 % (0-5); LYMPHOCYTES 12 % (16-52); MONOCYTES 9 % (0-8); NEUTROPHILS 76 % (35-75)
[2018-06-04 07:00] LABS: ANISOCYTOSIS 1+; PLATELET ESTIMATE DECREASED (NORMAL)
[2018-06-04 07:01] LABS: TOXIC VACUOLATION 1+
[2018-06-04 07:24] LABS: ALBUMIN 1.7 GM/DL (3.2-5.2); BLOOD UREA NITROGEN 12 MG/DL (7-18); CALCIUM LEVEL 7.8 MG/DL (8.8-10.2); CARBON DIOXIDE LEVEL 22 MEQ/L (21-32); CHLORIDE LEVEL 102 MEQ/L (98-107); CREATININE FOR GFR 0.78 MG/DL (0.55-1.30); GLOMERULAR FILTRATION RATE > 60.0 (>45); GLUCOSE, FASTING 78 MG/DL (70-100); PHOSPHORUS LEVEL 1.7 MG/DL (2.5-4.9); POTASSIUM SERUM 3.6 MEQ/L (3.5-5.1); SODIUM LEVEL 133 MEQ/L (136-145); URIC ACID 2.7 MG/DL (2.6-6.0)
[2018-06-04] MEDS: HEPARIN SOD (PORCINE) 5000 UNITS/ML VIAL SQ SCH ×2 (09:03→19:50)
[2018-06-04] MEDS: FLUoxetine 20 MG CAP PO SCH (09:03)
[2018-06-04] MEDS: MEGESTROL 40 MG TAB PO SCH (09:03)
[2018-06-04] MEDS: busPIRone 5 MG TAB PO SCH (09:04)
[2018-06-04] MEDS: PANTOPRAZOLE 40MG TAB (PROTONIX) PO SCH (09:04)
--- NOTE | 2018-06-04 11:45 | REP ---
CHEST, TWO VIEWS: Two views of the chest are performed and compared to prior study of 05/31/2018. There is dense infiltrate in the posterior right lower lobe. There is no definite infiltrate in the left lung. Heart and mediastinum are unchanged. Right central venous catheter is again noted. The left central venous catheter has been removed. There are degenerative changes of the spine. IMPRESSION: Dense right lower lobe infiltrate. Electronically Signed by Enrique Lindsay MD 06/04/2018 05:24 P
[2018-06-04] MEDS ORDERED: POTASSIUM PHOSPHATE INJ 20 MMOL in D5W 250 ML IV ONE (13:00)
[2018-06-04 14:00] VITALS: BP 135/79
--- NOTE | 2018-06-04 14:36 | PHACANCOPD ---
PHARMACY VANCOMYCIN DOSING Pt Demographics Demographics Patient Age:67 , Weight:86.300 , Gender: female Adjusted Body Weight Date: 05/31/18, Adjusted Body Weight: [78.3] Kg Vancomycin Vancomycin indication: SEPSIS Vancomycin Target Ranges: 15-20 mcg/ml Vancomycin Load Y/N: Yes Load Dose Date Time Vancomycin Load Dose: 1.5G Date: 05/31/18 Time: 13 Vancomycin Dose Date: 05/31/18. Current Vancomycin Dose: [1 GRAM Q24H] Intermittent Dosing?: No Labs Micro Microbiology 05/31/18 Blood Culture - Preliminary, Resulted No Growth after 72 hours. All specime... 05/31/18 Blood Culture - Preliminary, Resulted No Growth after 72 hours. All specime... 05/29/18 Blood Culture - Final, Complete NO GROWTH AFTER 5 DAYS 05/29/18 Blood Culture - Final, Complete NO GROWTH AFTER 5 DAYS 05/31/18 Stool Occult Blood (JAMIE) - Final, Complete 05/29/18 Gastrointestinal Tract Panel (PCR) - Final, Complete 06/03/18 MRSA Screen, Received Pending 05/29/18 Urine Culture - Final, Complete Creatinine Clearance 06/03/18: Est CrCl = 61ml/min Pending Labs VANCOMYCIN TROUGH 06/03@0900 Assessment and Plan Maintaining Current Dose?: No Reason for dose change: Trough too high Pharmacist Note Pharmacist Note 06/04/18: Vancomycin trough level today resulted at 21.4mcg/ml. Scr continues to improve at 0.78 today from 0.91 yesterday. We will reduce her regimen to 1g IV Q18H starting today at 1500. We will continue to monitor her renal function/output and schedule another follow-up trough level accordingly. 06/03/18: Vancomycin trough level today resulted at 11.9mcg/ml. The patient's crcl continues to improve at 0.91 today from 1.51 yesterday. Given the patient's improvement in kidney function we will increase her current regimen from 1g IV Q24H to 1g IV Q12H. A follow-up vancomycin trough level has been scheduled to be drawn tomorrow, 06/04/18, @0900. We will continue to monitor and adjust the dosing further if needed. Date: 06/02/18. Pharmacist note:Random Vancomycin level=16,1 this morning.Renal function continues to improve( CRCL=45.1 calculated).Will change from intermittent dosing to scheduled dose of 1 gram iv [id number]. Will draw trough tomorrow@0900 and assess at that point. 06/01/18: Random this AM resulted at 16.3mcg/ml. I have scheduled a one time dose of Vanco 750mg @1000. I have scheduled another level for tomorrow and we will go from there. Renal function is improved from yesterday. We will continue to monitor and adjust dose as needed. Date: 05/31/18. Pharmacist note: PT is a 67 year old female being treated for sepsis goal trough 15-20mcg/ml. The patient has not been treated with vancomycin here at [facility] in the past. To achieve goal a 1.5g loading dose was started today. Due to current renal functioning we will dose this patient intermittently. A vancomycin level is scheduled for 06/01/18 AM. We will continue to monitor and adjust the dose as needed. LOBITO [facility]ANG [facility] Jun 04, 2018 14:35
[2018-06-04] MEDS: VANCOMYCIN HCL 1,000 MG, VIAL MATE ADAPTER 1 EACH in D5W 250 ML IV SCH (16:29)
[2018-06-04] MEDS: LOMOTIL 2.5MG/0.025MG TABLET PO SCH (19:50)
--- NOTE | 2018-06-04 20:56 | IPN ---
DATE: 06/04/2018 Patient seen and examined. Patient reported feeling generalized weak today. Denies any chest pain pressure or discomfort and denies any shortness of breath. VITAL SIGNS: Temperature 98.1, pulse 75, respirations 16, blood pressure 135/78, pulse ox 95% on room air. LABORATORY: WBC 4.6, hemoglobin and hematocrit 9.9/29.4, platelets 96, sodium 133, potassium 3.6, chloride 102, bicarbonate 22, BUN 12, creatinine 0.78. PHYSICAL EXAMINATION: GENERAL: Patient is frail in no acute distress. HEENT: Moist mucous membrane. NECK: Supple. CARDIAC: Regular, S1, S2. PULMONARY: Coarse rhonchi bilateral base, no wheeze. ABDOMEN: Soft and nontender. EXTREMITIES: No clubbing, cyanosis or edema. ASSESSMENT AND PLAN: This is a 67-year-old female patient with underlying medical history of hypertension, smoking, hematochromatosis, alopecia, dyslipidemia, depression, anxiety, hypothyroidism, stage 4 colon cancer adenocarcinoma, declines surgical intervention. Admitted initially with septic shock possibly secondary to right sided lobar pneumonia. PROBLEMS: 1. Septic shock, secondary to right side lobar pneumonia. Patient on Zosyn and vanco. We will get CT scan, c-reactive protein appreciated. Patient currently off pressors, off fluids, initially intensive was consulted. 2. Pancytopenia likely chemo induced. Case discussed with Dr. Motta. 3. Anion gap metabolic acidosis resolved, likely secondary to renal failure. Nephrology input appreciated. 4. Hypokalemia, hypocalcemia, hypophosphatemia replaced. We will monitor. 5. Hypothyroidism. Continue Synthroid. 6. Stage 4 colon cancer adenocarcinoma. Case discussed with Dr. Gisela Motta. Recent chemo. Patient did not tolerate it well. Option of Hospice has also been discussed with the patient. 7. Deconditioning. Physical therapy has been ordered. 8. Acute kidney injury. Nephrology consulted. Currently resolved. 9. DVT prophylaxis, heparin subcu. 10. Depression. Continue current medication. 11. Diarrhea. GI panel has been negative. Lomotil has been added. 12. Disposition, pending clinical improvement and physical therapy. Hospice has been consulted. Family remains undecided.
[2018-06-04 22:00] VITALS: BP 134/71
[2018-06-05] MEDS: PIPERACILLIN/TAZOBACTAM SOD 3.375 GM in D5W MINI-BAG PLUS 50 ML IV SCH ×4 (00:11→18:49)
[2018-06-05] MEDS: LEVOTHYROXINE 125MCG TABLET (0.125MG) PO SCH (05:36)
[2018-06-05 06:00] VITALS: BP 127/65
[2018-06-05 07:18] LABS: HEMATOCRIT 28.3 % (36.0-47.0); HEMOGLOBIN 9.5 g/dl (12.0-15.5); MEAN CORPUSCULAR HEMOGLOBIN 29.9 pg (27.0-33.0); MEAN CORPUSCULAR HGB CONC 33.6 g/dl (32.0-36.5); PLATELET COUNT, AUTOMATED 100 10^3/uL (150-450); RED BLOOD COUNT 3.18 10^6/uL (4.00-5.40); WHITE BLOOD COUNT 4.4 10^3/uL (4.0-10.0)
[2018-06-05 07:30] LABS: ALBUMIN 1.7 GM/DL (3.2-5.2); BLOOD UREA NITROGEN 7 MG/DL (7-18); CALCIUM LEVEL 7.4 MG/DL (8.8-10.2); CARBON DIOXIDE LEVEL 23 MEQ/L (21-32); CHLORIDE LEVEL 104 MEQ/L (98-107); CREATININE FOR GFR 0.74 MG/DL (0.55-1.30); GLOMERULAR FILTRATION RATE > 60.0 (>45); GLUCOSE, FASTING 78 MG/DL (70-100); PHOSPHORUS LEVEL 1.8 MG/DL (2.5-4.9); POTASSIUM SERUM 3.3 MEQ/L (3.5-5.1); SODIUM LEVEL 136 MEQ/L (136-145); URIC ACID 2.3 MG/DL (2.6-6.0)
[2018-06-05 07:40] LABS: ATYPICAL LYMPH 2 % (0-5); LYMPHOCYTES 15 % (16-52); MONOCYTES 8 % (0-8); NEUTROPHILS 73 % (35-75)
[2018-06-05 07:41] LABS: ANISOCYTOSIS 1+; PLATELET ESTIMATE DECREASED (NORMAL)
[2018-06-05 07:43] LABS: DOHLE BODIES 1+; TOXIC VACUOLATION 1+
[2018-06-05] MEDS ORDERED: POTASSIUM CHLORIDE 10 MEQ SR TABLET PO ONE (07:45)
[2018-06-05 08:05] LABS: MAGNESIUM LEVEL 1.2 MG/DL (1.8-2.4)
[2018-06-05] MEDS ORDERED: SODIUM CHLORIDE 0.9% INJ 10 ML SYR IV PRN (08:30)
[2018-06-05] MEDS: VANCOMYCIN HCL 1,000 MG, VIAL MATE ADAPTER 1 EACH in D5W 250 ML IV SCH (09:24)
[2018-06-05] MEDS: NEUTRA-PHOS 1.25 GM PACKET PO SCH ×3 (09:25→21:22)
[2018-06-05] MEDS: FLUoxetine 20 MG CAP PO SCH (09:25)
[2018-06-05] MEDS: MEGESTROL 40 MG TAB PO SCH (09:25)
[2018-06-05] MEDS: PANTOPRAZOLE 40MG TAB (PROTONIX) PO SCH (09:25)
[2018-06-05] MEDS: busPIRone 5 MG TAB PO SCH (09:25)
[2018-06-05] MEDS: HEPARIN SOD (PORCINE) 5000 UNITS/ML VIAL SQ SCH ×2 (09:25→21:22)
[2018-06-05] MEDS: SODIUM CHLORIDE 0.9% INJ 10 ML SYR IV SCH (09:26)
[2018-06-05] MEDS: LOMOTIL 2.5MG/0.025MG TABLET PO SCH ×3 (11:12→21:22)
--- NOTE | 2018-06-05 12:44 | REP ---
CT of the chest without IV contrast: Comparison is 05/02/2018 with IV contrast. There is a large infiltrate in the right lower lobe as an interval change. There is a patchy subsegmental infiltrate in the left upper lobe as an interval change. There is a small patchy infiltrate in the deep posterior sulcus of the left lower lobe as an interval change. There are tiny bilateral pleural effusions as an interval change. There is an enlarged left intramammary node on image 25 measuring 12 mm, unchanged. There is a right lower lobe lung nodule on image 38 measuring 8 mm, unchanged. There is a left upper lobe nodule posteriorly in the left hilus on image 32 of the axial images about better visualized on the coronal image 39 measuring 8 mm. This measured 7 mm previously. There is a paratracheal mediastinal node on image 28 measuring 15 mm. This has increased in size. This previously measured 9 mm. Impression: Large right lower lobe infiltrate. Left upper lobe patchy infiltrate. Left lower lobe patchy infiltrate. Left intramammary lymph node, right lower lobe lung nodule and left upper lobe nodule are unchanged. Enlarged mediastinal paratracheal node as an interval change. Small bilateral pleural effusions as an interval change. Electronically Signed by Enrique Murry MD 06/05/2018 12:35 P
[2018-06-05 14:00] VITALS: BP 128/67
--- NOTE | 2018-06-05 21:32 | IPNPDOC ---
Text Note Date of Service The patient was seen on 06/05/18. NOTE Patient seen and examined. Patient reported feeling well. Denies any chest pain pressure or discomfort and denies any shortness of breath. PHYSICAL EXAMINATION: GENERAL: Patient is frail in no acute distress. HEENT: Moist mucous membrane. NECK: Supple. CARDIAC: Regular, S1, S2. PULMONARY: Coarse rhonchi bilateral base, no wheeze. ABDOMEN: Soft and nontender. EXTREMITIES: No clubbing, cyanosis or edema. ASSESSMENT AND PLAN: This is a 67-year-old female patient with underlying medical history of hypertension, smoking, hematochromatosis, alopecia, dyslipidemia, depression, anxiety, hypothyroidism, stage 4 colon cancer adenocarcinoma, declines surgical intervention. Admitted initially with septic shock possibly secondary to right sided lobar pneumonia. PROBLEMS: 1. Septic shock, secondary to right side lobar pneumonia. Patient on Zosyn. We will get CT scan, c-reactive protein appreciated. Patient currently off pressors, off fluids, initially intensive was consulted. 2. Pancytopenia likely chemo induced. Case discussed with Dr. Motta. 3. Anion gap metabolic acidosis resolved, likely secondary to renal failure. Nephrology input appreciated. 4. Hypokalemia, hypocalcemia, hypophosphatemia replaced. We will monitor. 5. Hypothyroidism. Continue Synthroid. 6. Stage 4 colon cancer adenocarcinoma. Case discussed with Dr. Gisela Motta. Recent chemo. Patient did not tolerate it well. Option of Hospice has also been discussed with the patient. 7. Deconditioning. Physical therapy has been ordered. 8. Acute kidney injury. Nephrology consulted. Currently resolved. 9. DVT prophylaxis, heparin subcu. 10. Depression. Continue current medication. 11. Diarrhea. GI panel has been negative. Lomotil has been added. 12. Disposition, pending clinical improvement and physical therapy. Hospice has been consulted. Family remains undecided. VS,Fishbone, I+O VS, Fishbone, I+O Laboratory Tests 06/05/18 06:53 Red Blood Count 3.18 L, Mean Corpuscular Volume 89.0, Mean Corpuscular Hemoglobin 29.9, Mean Corpuscular Hemoglobin Concent 33.6, Red Cell Distribution Width 16.5 H, Anion Gap 9, Uric Acid 2.3 L Vital Signs Date Time Temp Pulse Resp B/P (MAP) Pulse Ox O2 Delivery O2 Flow Rate FiO2 2/13/19 14:00 98.2 71 18 128/67 (87) 97 06/03/18 16:00 1.0 I&O- Last 24 Hours up to 6 AM 06/05/18 06:00 Intake Total 1000.6 ml Output Total 250 ml Balance 750.6 ml DHAVAL COLEMAN MD Jun 05, 2018 21:32
[2018-06-05 22:00] VITALS: BP 141/79
[2018-06-05] MEDS: MAG SULF 1GM/100ML (MAG RUN) 1 GM in APPROPRIATE DILUENT 1 EA IV SCH ×2 (22:49→23:45)
[2018-06-06] MEDS: PIPERACILLIN/TAZOBACTAM SOD 3.375 GM in D5W MINI-BAG PLUS 50 ML IV SCH ×3 (00:48→11:19)
[2018-06-06] MEDS: LEVOTHYROXINE 125MCG TABLET (0.125MG) PO SCH (05:53)
[2018-06-06 06:00] VITALS: BP 138/82
[2018-06-06 06:07] LABS: HEMOGLOBIN 9.6 g/dl (12.0-15.5); MEAN CORPUSCULAR HEMOGLOBIN 29.8 pg (27.0-33.0); MEAN CORPUSCULAR HGB CONC 33.1 g/dl (32.0-36.5); MEAN CORPUSCULAR VOLUME 90.1 fl (80.0-96.0); PLATELET COUNT, AUTOMATED 101 10^3/uL (150-450); RED BLOOD COUNT 3.22 10^6/uL (4.00-5.40); WHITE BLOOD COUNT 4.5 10^3/uL (4.0-10.0)
[2018-06-06 06:45] LABS: ALBUMIN 1.7 GM/DL (3.2-5.2); BLOOD UREA NITROGEN 6 MG/DL (7-18); CALCIUM LEVEL 7.1 MG/DL (8.8-10.2); CARBON DIOXIDE LEVEL 23 MEQ/L (21-32); CHLORIDE LEVEL 103 MEQ/L (98-107); CREATININE FOR GFR 0.64 MG/DL (0.55-1.30); GLOMERULAR FILTRATION RATE > 60.0 (>45); GLUCOSE, FASTING 74 MG/DL (70-100); PHOSPHORUS LEVEL 1.8 MG/DL (2.5-4.9); POTASSIUM SERUM 4.1 MEQ/L (3.5-5.1); SODIUM LEVEL 134 MEQ/L (136-145); URIC ACID 1.9 MG/DL (2.6-6.0)
[2018-06-06 07:10] LABS: ATYPICAL LYMPH 6 % (0-5); EOSINOPHILS 3 % (0-5); LYMPHOCYTES 24 % (16-52); MONOCYTES 6 % (0-8); NEUTROPHILS 59 % (35-75); PLATELET ESTIMATE DECREASED (NORMAL)
[2018-06-06 07:11] LABS: ANISOCYTOSIS 1+
[2018-06-06] MEDS: NEUTRA-PHOS 1.25 GM PACKET PO SCH (09:00)
[2018-06-06] MEDS: PANTOPRAZOLE 40MG TAB (PROTONIX) PO SCH (09:18)
[2018-06-06] MEDS: HEPARIN SOD (PORCINE) 5000 UNITS/ML VIAL SQ SCH (09:18)
[2018-06-06] MEDS: MEGESTROL 40 MG TAB PO SCH (09:18)
[2018-06-06] MEDS: busPIRone 5 MG TAB PO SCH (09:18)
[2018-06-06] MEDS: LOMOTIL 2.5MG/0.025MG TABLET PO SCH (09:18)
[2018-06-06] MEDS: FLUoxetine 20 MG CAP PO SCH (09:19)
[2018-06-06] MEDS: SODIUM CHLORIDE 0.9% INJ 10 ML SYR IV SCH (09:19)
[2018-06-06] MEDS ORDERED: MORP20SO3 PO (10:02)
[2018-06-06] MEDS ORDERED: HYOS125TA PO (10:02)
[2018-06-06] MEDS ORDERED: LORA0.5T11 PO (10:02)
--- NOTE | 2018-06-06 16:49 | IPN ---
INPATIENT ONCOLOGY FOLLOW UP DATE: 06/05/2018 Cassandra is doing somewhat better. She has no pain. She and her family have been discussing going home with hospice. We discussed prognosis. I had discussed this with the patient's fairly clearly last week, but in the difficult first days of an admission, he may not remember. With metastatic colon cancer, off-treatment life expectancy is on the order of 6 months, longer with treatment. Today, Cassandra asked about treatment, and I explained with her performance status (her ability to be out of bed and independent) now quite limited, she is not a candidate for further active chemotherapy. 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 In discussing hospice today, Mr. Christianson says he was told by the hospice screening representative that unless he would be there all the time, he could not have hospice care in home, and in-residence hospice was recommended. It seems there is a confusion about the idea of having someone there to cover his absences should he need to go to an appointment and so forth. He has the number of the social work nurse. I have tried to determine who the social work nurse is; it sounds like Gina Severino of [facility], and I will make an effort to reach her to try to help see if between her and hospice we can help Cassandra go home with hospice care. This is very reasonable. She is not in active pain now. She would like to be with her family home. IMPRESSION: Stage IV BRAF-positive colon cancer. Failed second-line treatment due to pancytopenia. [employer]cology Group (ECOG) performance status 3-4. Asymptomatic currently. Counts improving. Wishes to go home on hospice care. PLAN: I look forward to speaking with our social work nurse regarding helping to see if there is a way the family can have hospice care at home. MTDD
--- NOTE | 2018-06-06 19:44 | DSES ---
DATE OF ADMISSION: 05/29/2018 DATE OF DISCHARGE: 06/06/2018 PRIMARY CARE PROVIDER: Mariann Andrews. ONCOLOGIST: Dr. Gisela Xiong RAILROAD INSPECTOR: Dr. Jeffers SILVER MINER: Dr. Shanita Mcnulty FINAL DIAGNOSES: 1. Septic shock secondary to right sided lobar pneumonia. 2. Pancytopenia. 3. Anion gap metabolic acidosis secondary to septic shock. 4. Hypokalemia. 5. Hypocalcemia. 6. Hypophosphatemia. 7. Hypothyroidism. 8. Stage IV adenocarcinoma of the colon. 9. Severe deconditioning. 10. Acute kidney injury. 11. Protein calorie malnutrition. 12. Diarrhea. 13. Depression. HISTORY OF PRESENT ILLNESS: This is a 57-year-old female patient with underlying medical history of smoking, hypertension, hemachromatosis, alopecia, hypercholesterolemia, depression, anxiety, hypothyroidism, stage IV adenocarcinoma of the colon, initially refused surgery and then later deemed not a surgical candidate, has been on chemotherapy. The patient recently started a new chemotherapy regimen with irinotecan, cetuximab, vemurafenib, which was received on 05/21/2018, following which the patient started having nausea, vomiting, along with diarrhea, initially on and off. The patient's oral intake progressively worsened with worsening vomiting. Later vomiting improved but diarrhea worsened. Denies any blood in the stool. Reported lightheadedness. Denies any chest pain, palpitations, shortness of breath. Denies any change in urinary habits. The patient presented to the emergency department and was found to be in pancytopenia with acute renal failure, lactic acidosis. IV fluids were given. Hospitalist was called to admit the patient. The patient's condition progressively declined. Nephrology was consulted. Pressor was started. Intensive care team was consulted and the patient was started on broad spectrum antibiotic. Blood culture was sent, as well as GI panel was negative. Blood cultures negative to date. The patient's counts progressively improved and the patient was weaned off of pressors. Chest x-ray was appreciated showing evidence of pneumonia. CT of the chest was also appreciated. Hematology/oncology was consulted. The patient has progressively worsened deconditioning. Physical therapy (PT) has been ordered. Option of hospice has been discussed with the patient by hematology/oncology. The patient's family is undecided about hospice and later after further discussion, patient's family is agreeable to hospice house and subsequently arrangements were made for the patient to be transferred to hospice house. VITAL SIGNS: Temperature 98.1, pulse 76, respirations 18, blood pressure 138/82, pulse oximetry 94% on room air. LABORATORY DATA: WBC 4.5, hemoglobin and hematocrit 9.6/29, platelets 101. Sodium 134, potassium 4.1, chloride 103, bicarbonate 23, BUN 6, creatinine 0.64. GENERAL: The patient is frail and in no acute distress. HEENT: Normocephalic, atraumatic. Moist mucous membranes. NECK: Supple. CARDIAC: Regular. S1, S2. PULMONARY: Diminished breath sounds in bilateral bases. ABDOMEN: Soft, nontender. EXTREMITIES: No clubbing, cyanosis or edema. DISCHARGE MEDICATIONS: - hyoscyamine 0.125 mg by mouth every 4 hours for terminal secretions - Ativan 0.5 mg by mouth every 2 hours as needed for anxiety - Roxanol 100 mg per 5 mL 0.25 to 1.0 mL every - buspirone mg by mouth daily - fluoxetine 40 mg by mouth daily - Synthroid 125 mcg by mouth daily - Megace 160 mg by mouth daily - omega 3 fatty acid by mouth daily - Zofran 8 mg by mouth every 6 hours as needed - prochlorperazine 10 mg by mouth every 8 hours as needed DISCHARGE INSTRUCTIONS: The patient is transferred to hospice. Please follow with hospice provider for further care. Return to the hospital if symptoms worsen.
== END 2018-06-06 12:10 | disposition hospice, inpatient (51) | DRG 393 ==
LOC: M ED 00:28 → EDBD 00:28 → M ED INP 03:15 → M PCU 05:58 → M ICU 05-31 10:49 → M MS5PR 06-03 17:49
PROVIDERS: ADMIT Hospitalist; ATTEND Hospitalist
PROC: 02HV33Z Insertion of Infusion Device into Superior Vena Cava, Percutaneous Approach (ICD-10-PCS; principal; 2018-05-31)
PROC: 30233N1 Transfusion of Nonautologous Red Blood Cells into Peripheral Vein, Percutaneous Approach (ICD-10-PCS; 2018-05-31)
DX: K52.1 Toxic gastroenteritis and colitis (principal); N17.0 Acute kidney failure with tubular necrosis; D61.810 Antineoplastic chemotherapy induced pancytopenia; A41.9 Sepsis, unspecified organism; R65.21 Severe sepsis with septic shock; J18.9 Pneumonia, unspecified organism; C18.9 Malignant neoplasm of colon, unspecified; C78.6 Secondary malignant neoplasm of retroperitoneum and peritoneum; E87.2 Acidosis; E87.1 Hypo-osmolality and hyponatremia; Z66 Do not resuscitate; T45.1X5A Adverse effect of antineoplastic and immunosuppressive drugs, initial encounter; I12.9 Hypertensive chronic kidney disease with stage 1 through stage 4 chronic kidney disease, or unspecified chronic kidney disease; E83.119 Hemochromatosis, unspecified; E83.51 Hypocalcemia; L64.0 Drug-induced androgenic alopecia; E79.0 Hyperuricemia without signs of inflammatory arthritis and tophaceous disease; E78.00 Pure hypercholesterolemia, unspecified; F32.9 Major depressive disorder, single episode, unspecified; E87.6 Hypokalemia; N18.2 Chronic kidney disease, stage 2 (mild); I48.91 Unspecified atrial fibrillation; E83.39 Other disorders of phosphorus metabolism; E03.9 Hypothyroidism, unspecified; F41.9 Anxiety disorder, unspecified; F17.210 Nicotine dependence, cigarettes, uncomplicated; E87.5 Hyperkalemia; D70.1 Agranulocytosis secondary to cancer chemotherapy; E86.0 Dehydration; Z79.899 Other long term (current) drug therapy; Z90.49 Acquired absence of other specified parts of digestive tract; Z90.710 Acquired absence of both cervix and uterus

== ENCOUNTER 2018-12-25 23:14 | Observation (INO) | payer MEDICARE, OTHER ==
[~2018-12-25] VITALS: Ht 172.7 cm; Wt 93.4 kg
[~2018-12-25 23:14] MED LIST changes: +HYOS125TA PO; +LORA0.5T11 PO; +MORP20SO3 PO; -OMEP40CA2 PO; +OMEP40CA97 PO; +PROC10TA4 PO
[2018-12-25 23:35] VITALS: BP 111/51
[2018-12-26] MEDS ORDERED: NS 1,000 ML IV SCH ×2 (00:01→00:15)
[2018-12-26] MEDS ORDERED: ZOLP10TA2 PO (00:10)
[2018-12-26] MEDS ORDERED: DEXA4TA PO (00:10)
[2018-12-26] MEDS ORDERED: FLUO20CA19 PO (00:10)
[2018-12-26] MEDS ORDERED: OXYC-517 PO (00:10)
[2018-12-26] MEDS ORDERED: LORA1TAB12 PO (00:10)
[2018-12-26] MEDS ORDERED: COLA100C5 PO (00:10)
[2018-12-26] MEDS ORDERED: SENN8.6T28 PO (00:10)
--- NOTE | 2018-12-26 00:12 | HPEPDOC ---
[facility] Medical History & Physical Date of Admission Dec 26, 2018 Date of Service: Dec 26, 2018 Primary Care Physician: Mariann Andrews Attending Physician: ARGENIS NI MD History and Physical Time of service 1:30AM CHIEF COMPLAINT: Abdominal pain HISTORY OF PRESENT ILLNESS: This is a 68-year-old female with a past medical history of metastatic colon cancer who is directly admitted from her home. Per discussion with her palliative care nurse, she been having severe abdominal pain, which is unusual for her to complain of, and intractable nausea and vomiting. The patient's tried to give her oral pain medications and antiemetics, but the patient vomited these medications. The patient had bowel movements yesterday prior to arrival in the hospital. According to the patient's , the patient has a good appetite recently, and has not been using pain meds chronically since July or August, except for one dose last night prior to arrival in the ED. Her Ativan and this was recently switched to Effexor. Currently the patient reports that her diffuse, nonradiating abdominal pain has decreased from "13/10" in severity to "6 /10" now after receiving morphine. REVIEW OF SYSTEMS: 12 point review of systems negative except as listed in HPI PAST MEDICAL / SURGICAL HISTORY: Stage IV adenocarcinoma of the colon ( B Raff mutation-positive K-radha mutation negative) Chronic hypertension. Homozygous Hemochromatosis Alopecia, Dyslipidemia Depression/anxiety Hypothyroidism. Fatty liver Status post cholecystectomy Status post cystectomy. Status post appendectomy. Status post breast biopsies SOCIAL HISTORY: Smokes FAMILY HISTORY: The patient is adopted and does not know her family history ALLERGIES: Please see below. HOME MEDICATIONS: Please see below. PHYSICAL EXAMINATION: VITAL SIGNS: See below GENERAL APPEARANCE: Well-nourished, well-developed, not in apparent distress HEENT: Normocephalic, atraumatic, mucous members moist and pink CARDIOVASCULAR: Regular rate and rhythm, no murmurs, rubs or gallops, radial pulses intact LUNGS: Her to auscultation bilaterally on room air ABDOMEN: Abdomen is soft and distended, bowel sounds are hypoactive, there is no pain NEUROLOGICAL: Cranial nerves II-12 are grossly intact, speech is not dysarthric PSYCHIATRIC: The patient is alert and oriented, slightly sleepy but answers questions appropriately LABORATORY DATA: Not applicable as patient is hospice status only IMAGING: Not applicable as patient is hospice status only MICROBIOLOGY: Not applicable as patient is hospice status only ASSESSMENT: Ms. Christianson is a 68 year old female w a past medical history of stage IV colon cancer, chronic hypertension, and hemochromatosis who will be admitted for management of cancer related abdominal pain, and vomiting. . PLAN: 1. Cancer-related abdominal pain. Suspect the pain may be due to metastasis. Per discussion with the patient's RN wali the pad of care aren't told her the patient's abdomen is been more distended Plan: Admit to general medical floor/[employer] pump with morphine/bisacodyl, senna and MiraLAX to prevent constipation/IV Ativan when necessary for anxiety/palliative care consult for comanagement of pain medications / follow-up UA to rule out UTI 2. Nausea and vomiting. Plan: Zofran and Compazine/IV fluids 3. Comfort measures only status. Plan: Comfort measures order set 4. Chronic hypertension. Plan: Hold amlodipine until nausea, vomiting have resolved 5. Hypothyroidism Plan: Hold levothyroxine until nausea and vomiting have resolved DVT prophylaxis with SCDs. Disposition pending clinical course Home Medications Scheduled Amlodipine Besylate (Amlodipine Besylate) 5 Mg Tab, 5 MG PO DAILY Buspirone HCl (Buspirone HCl) 15 Mg Tab, 15 MG PO TID Dexamethasone (Dexamethasone) 4 Mg Tablet, 4 MG PO DAILY Docusate Sodium (Colace) 100 Mg Capsule, 100 MG PO BID Fluoxetine Hcl (Fluoxetine HCl) 40 Mg Cap, 40 MG PO DAILY 60MG TOTAL Fluoxetine Hcl (Fluoxetine HCl) 20 Mg Capsule, 20 MG PO DAILY TOTAL OF 60MG Levothyroxine Sodium (Levothyroxine Sodium) 125 Mcg Tab, 125 MCG PO DAILY Lorazepam (Lorazepam) 1 Mg Tablet, 1 MG PO 5XD Use sublingually if unable to swallow [place]-3/Dha/Epa/Fish Oil ([place]-3 EC Softgel) 1 Cap Cap, 1 CAP PO DAILY Sennosides (Senna) 8.6 Mg Tablet, 17.2 MG PO BID Venlafaxine HCl (Venlafaxine HCl ER) 37.5 Mg Cap.er.24h, 37.5 MG PO BID PT HAD BEEN TAKING ONE CAP DAILY WAS SUPPOSED TO GO UP TO BID ON 12/26 Zolpidem Tartrate (Zolpidem Tartrate) 10 Mg Tablet, 10 MG PO QHS Scheduled PRN Acetaminophen (Acetaminophen) 500 Mg Tablet, 1,000 MG PO Q8H PRN for MILD PAIN OR FEVER Acetaminophen (Acetaminophen) 650 Mg Supp.rect, 650 MG VA Q4H PRN for MILD PAIN OR FEVER Bisacodyl (Dulcolax) 10 Mg Supp.rect, 10 MG VA Q3DP PRN for CONSTIPATION USED IF NO BM FOR 3 DAYS Diphenhydramine HCl (Benadryl) 25 Mg Capsule, 25 MG PO QHS PRN for SLEEP MAY REPEAT AFTER ONE HOUR IF NO RESULTS Hyoscyamine Sulfate (Hyoscyamine Sulfate) 0.125 Mg Tab.subl, 0.125 MG PO Q4H PRN for TERMINAL SECRETIONS Use sublingually if unable to swallow Lorazepam (Lorazepam) 0.5 Mg Tablet, 0.5 MG PO Q2H PRN for ANXIETY/AGITATION Use sublingually if unable to swallow Magnesium Hydroxide (Milk of Magnesia) 400 Mg/5 Ml Oral.susp, 2,400 MG PO Q2D PRN for CONSTIPATION USE IF NO BM IN 2 DAYS Morphine Sulfate (Morphine Sulfate) 100 Mg/5 Ml Solution, 0.25-1 ML PO Q2H PRN for PAIN OR DYSPNEA Use sublingually if unable to swallow Ondansetron HCl (Ondansetron HCl) 8 Mg Tab, 8 MG PO Q6H PRN for NAUSEA Oxycodone HCl (Oxycodone HCl) 5 Mg Tablet, 2.5 MG PO BID PRN for PAIN Prochlorperazine Maleate (Prochlorperazine Maleate) 10 Mg Tab, 10 MG PO Q8H PRN for NAUSEA Sodium Phosphate,[place]-Dibasic (Enema) 133 Ml Enema, 1 ANDRIY VA Q4DP PRN for CONSTIPATION TO BE USED IF NO BM IN 4 DAYS Allergies Coded Allergies: No Known Allergies (Unverified , 07/18/18) A-FIB/CHADSVASC A-FIB History Current/History of A-Fib/PAF?: No Current PO Anticoag Therapy: No ARGENIS NI MD Dec 26, 2018 00:12
[2018-12-26] MEDS ORDERED: BENA25CA4 PO (00:15)
[2018-12-26] MEDS ORDERED: NALBUPHINE HCL 10 MG/ML AMP (J2300) IV PRN (00:15)
[2018-12-26] MEDS ORDERED: VENL37.52 PO (00:15)
[2018-12-26] MEDS ORDERED: EPIDURAL/PCA KEYS XX PRN (00:15)
[2018-12-26] MEDS ORDERED: SENNA 8.6 MG TAB (SENOKOT) PO PRN (00:15)
[2018-12-26] MEDS ORDERED: diphenhydrAMINE INJ 50MG/ML VIAL (J1200) IV PRN (00:15)
[2018-12-26] MEDS ORDERED: MORPHINE 1MG/ML IN 0.9% NACL 100ML IV BAG IV PRN ×2 (00:15→05:45)
[2018-12-26] MEDS ORDERED: ENEMENE PR (00:15)
[2018-12-26] MEDS ORDERED: NALOXONE INJ 0.4 MG/1 ML VIAL (J2310) IV PRN (00:15)
[2018-12-26] MEDS ORDERED: ONDANSETRON 4MG/2ML VIAL (J2405) IV PRN ×2 (00:15)
[2018-12-26] MEDS ORDERED: PROCHLORPERAZINE 10 MG/2 ML VIAL (J0780) IM PRN (00:15)
[2018-12-26] MEDS ORDERED: MILKSUS7 PO (00:18)
[2018-12-26] MEDS ORDERED: LORazepam 1 MG TAB As Ordered ONE (00:18)
[2018-12-26] MEDS ORDERED: DULC10SU2 PR (00:18)
[2018-12-26] MEDS ORDERED: ONDANSETRON 4MG/2ML VIAL (J2405) As Ordered ONE (00:18)
[2018-12-26] MEDS ORDERED: MORP20SO3 PO (00:23)
[2018-12-26] MEDS ORDERED: HYOS125TA PO (00:23)
[2018-12-26] MEDS ORDERED: LORA0.5T11 PO (00:23)
[2018-12-26] MEDS ORDERED: ACET1TAB55 PO (00:25)
[2018-12-26] MEDS ORDERED: ACET500T15 PO (00:25)
[2018-12-26] MEDS: LORazepam 1 MG TAB PO PRN ×2 (00:31→05:12)
[2018-12-26] MEDS ORDERED: ACET65SU PR (00:37)
[2018-12-26] MEDS ORDERED: HYDROMORPHONE HCL 0.5 MG/ 0.5 ML SYRINGE (J1170 PER 1) IV ONE (00:45)
[2018-12-26] MEDS ORDERED: BISACODYL 10 MG SUPP PR PRN (01:45)
[2018-12-26 05:28] VITALS: BP_SYST 70
[2018-12-26] MEDS ORDERED: IBUPROFEN 100 MG/5 ML SUSP UDC DYE FREE PO ONE (07:00)
[2018-12-26] MEDS ORDERED: MIRALAX *UNIT DOSE* 17GM PACKET PO SCH (09:00)
[2018-12-26] MEDS ORDERED: FLUoxetine 20 MG CAP PO SCH ×2 (09:00)
[2018-12-26] MEDS ORDERED: busPIRone 5 MG TAB PO SCH (09:00)
--- NOTE | 2018-12-26 15:19 | DS.PDOC ---
Discharge Summary General Date of Admission Dec 25, 2018 at 23:43 Date of Discharge 12/26/18 Discharge Summary PROCEDURES PERFORMED DURING STAY: [None]. COMPLICATIONS/CHIEF COMPLAINT: Colon Cancer. HOSPITAL COURSE: Was notified by staff at 07:02AM that patient had . Patient unknown to me. Please refer to chart regarding details of admission. DISCHARGE MEDICATIONS: Please see below. ALLERGIES: Please see below. PHYSICAL EXAMINATION ON DISCHARGE: Patient . LABORATORY DATA: Please see below. DISPOSITION: 20 . TIME SPENT ON DISCHARGE: 32 minutes. Vital Signs/I&Os Vital Signs Date Time Temp Pulse Resp B/P (MAP) Pulse Ox O2 Delivery O2 Flow Rate FiO2 12/26/18 05:28 111 70/ (23) 89 4.0 12/25/18 23:35 97.4 20 I&O- Last 24 Hours up to 6 AM 12/26/18 06:00 Intake Total 60 ml Balance 60 ml Discharge Medications Scheduled Amlodipine Besylate (Amlodipine Besylate) 5 Mg Tab, 5 MG PO DAILY, (Reported) Buspirone HCl (Buspirone HCl) 15 Mg Tab, 15 MG PO TID, (Reported) Dexamethasone (Dexamethasone) 4 Mg Tablet, 4 MG PO DAILY, (Reported) Docusate Sodium (Colace) 100 Mg Capsule, 100 MG PO BID, (Reported) Fluoxetine Hcl (Fluoxetine HCl) 40 Mg Cap, 40 MG PO DAILY, (Reported) 60MG TOTAL Fluoxetine Hcl (Fluoxetine HCl) 20 Mg Capsule, 20 MG PO DAILY, (Reported) TOTAL OF 60MG Levothyroxine Sodium (Levothyroxine Sodium) 125 Mcg Tab, 125 MCG PO DAILY, (Reported) Lorazepam (Lorazepam) 1 Mg Tablet, 1 MG PO 5XD, (Reported) Use sublingually if unable to swallow [place]-3/Dha/Epa/Fish Oil ([place]-3 EC Softgel) 1 Cap Cap, 1 CAP PO DAILY, (Reported) Sennosides (Senna) 8.6 Mg Tablet, 17.2 MG PO BID, (Reported) Venlafaxine HCl (Venlafaxine HCl ER) 37.5 Mg Cap.er.24h, 37.5 MG PO BID, (Reported) PT HAD BEEN TAKING ONE CAP DAILY WAS SUPPOSED TO GO UP TO BID ON 12/26 Zolpidem Tartrate (Zolpidem Tartrate) 10 Mg Tablet, 10 MG PO QHS, (Reported) Scheduled PRN Acetaminophen (Acetaminophen) 500 Mg Tablet, 1,000 MG PO Q8H PRN for MILD PAIN OR FEVER, (Reported) Acetaminophen (Acetaminophen) 650 Mg Supp.rect, 650 MG NV Q4H PRN for MILD PAIN OR FEVER, (Reported) Bisacodyl (Dulcolax) 10 Mg Supp.rect, 10 MG NV Q3DP PRN for CONSTIPATION, (Reported) USED IF NO BM FOR 3 DAYS Diphenhydramine HCl (Benadryl) 25 Mg Capsule, 25 MG PO QHS PRN for SLEEP, (Reported) MAY REPEAT AFTER ONE HOUR IF NO RESULTS Hyoscyamine Sulfate (Hyoscyamine Sulfate) 0.125 Mg Tab.subl, 0.125 MG PO Q4H PRN for TERMINAL SECRETIONS, (Reported) Use sublingually if unable to swallow Lorazepam (Lorazepam) 0.5 Mg Tablet, 0.5 MG PO Q2H PRN for ANXIETY/AGITATION, (Reported) Use sublingually if unable to swallow Magnesium Hydroxide (Milk of Magnesia) 400 Mg/5 Ml Oral.susp, 2,400 MG PO Q2D PRN for CONSTIPATION, (Reported) USE IF NO BM IN 2 DAYS Morphine Sulfate (Morphine Sulfate) 100 Mg/5 Ml Solution, 0.25-1 ML PO Q2H PRN for PAIN OR DYSPNEA, (Reported) Use sublingually if unable to swallow Ondansetron HCl (Ondansetron HCl) 8 Mg Tab, 8 MG PO Q6H PRN for NAUSEA, (Reported) Oxycodone HCl (Oxycodone HCl) 5 Mg Tablet, 2.5 MG PO BID PRN for PAIN, (Reported) Prochlorperazine Maleate (Prochlorperazine Maleate) 10 Mg Tab, 10 MG PO Q8H PRN for NAUSEA, (Reported) Sodium Phosphate,[place]-Dibasic (Enema) 133 Ml Enema, 1 ANDRIY NV Q4DP PRN for CONSTIPATION, (Reported) TO BE USED IF NO BM IN 4 DAYS Allergies Coded Allergies: No Known Allergies (Unverified , 07/18/18) RISHI PINON MD Dec 26, 2018 15:19
== END 2018-12-26 07:02 | disposition expired ==
LOC: INTOOBSV 23:43 → M MSPAV 23:43
PROVIDERS: ADMIT Internal Medicine; ATTEND Internal Medicine
DX: C18.9 Malignant neoplasm of colon, unspecified (principal); Z51.5 Encounter for palliative care; I10 Essential (primary) hypertension; E83.118 Other hemochromatosis; L63.9 Alopecia areata, unspecified; E78.5 Hyperlipidemia, unspecified; F41.9 Anxiety disorder, unspecified; F32.9 Major depressive disorder, single episode, unspecified; E03.9 Hypothyroidism, unspecified; K76.0 Fatty (change of) liver, not elsewhere classified; Z79.899 Other long term (current) drug therapy
CPT/HCPCS: 96374; 96375; J2405